=== PATIENT | male | born 1985 | race Two or more races ===

== ENCOUNTER 2018-07-14 22:53 | Emergency (ER) | payer MEDICARE, MEDICAID ==
[~2018-07-14] VITALS: Ht 185.4 cm; Wt 117.8 kg
[2018-07-14 23:09] VITALS: BP 149/101
--- NOTE | 2018-07-15 00:21 | NUR ---
PATIENT STATES THAT HE HEARS VOICES,"LIKE HES OVERHEARING CONVERSATIONS BUT THEY AREN'T TALKING TO HIM". PATIENT DENIES HI/SI, STATES THAT HE WAS ARRESTED AT [employer] FROM [employer]ES [employer]. 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
--- NOTE | 2018-07-15 00:27 | NUR ---
"PATIENT STATES HE WAS JUST HAVING FUN IN HIS FEARS", STATES THAT HE JUST WANTS SOMEWHERE TO STAY FOR THE NIGHT BUT DENIES THOUGHTS OF HARMING HIMSELF OR OTHERS.
[2018-07-18] MEDS ORDERED: NO HOME MEDS (01:17)
== END 2018-07-15 00:58 | disposition left against medical advice (07) ==
LOC: ER 22:54
DX: R41.0 Disorientation, unspecified (principal); F31.9 Bipolar disorder, unspecified; E03.9 Hypothyroidism, unspecified; F12.90 Cannabis use, unspecified, uncomplicated; Z56.0 Unemployment, unspecified; Z88.8 Allergy status to other drugs, medicaments and biological substances
CPT/HCPCS: 99284

== ENCOUNTER 2018-07-29 11:52 | Emergency (ER) | payer MEDICARE, MEDICAID ==
[~2018-07-29 11:52] MED LIST: NO HOME MEDS
--- NOTE | 2018-07-29 12:06 | NUR ---
PT TOLD THE PAWN SHOP KEEPER HE WAS LEAVING SO HE COULD CATCH THE BUS.
== END 2018-07-29 12:18 | disposition left against medical advice (07) ==
LOC: ER 11:53
DX: M79.673 Pain in unspecified foot (principal); Z53.21 Procedure and treatment not carried out due to patient leaving prior to being seen by health care provider

== ENCOUNTER 2018-07-29 15:04 | Emergency (ER) | payer MEDICARE, MEDICAID | END 2018-07-29 17:14 | disposition left against medical advice (07) | LOC: ER 15:05 | DX: Z53.21 Procedure and treatment not carried out due to patient leaving prior to being seen by health care provider (principal) ==

== ENCOUNTER 2018-08-03 16:18 | Inpatient (IN) | payer MEDICARE, MEDICAID ==
[~2018-08-03] VITALS: Ht 185.4 cm; Wt 120.8 kg
[2018-08-03] MEDS ORDERED: magnesium hydroxide 30ml (MOM) UD suspension PO PRN (21:15)
[2018-08-03] MEDS ORDERED: acetaminophen 325mg tablet PO PRN ×2 (21:15)
[2018-08-03] MEDS ORDERED: loperamide 2mg capsule PO PRN (21:15)
[2018-08-03] MEDS ORDERED: mag hydrox/Alum hydrox/simeth 30ml oral suspension PO PRN (21:15)
--- NOTE | 2018-08-03 22:10 | NUR ---
This patient is a direct admit from [facility] at 2014 to room 327-A, on a 5150 for DTS/DTO. The patient is homeless, and was found by law enforcement running into traffic, having paranoid thoughts, and, "I thought the Mafia was after me." The client admits to having homicidal thoughts. He has a long hx of "Schizoaffective," and has served time at [facility] for 2 felonies. The patient admits to smoking Cannabis, and Utox agrees. During admit the patient became restless and agitated with questions. He just quit talking. "I'm sorry, but I just don't want to talk right now." He is oriented to the unit, belongings inventoried by EDMUND Aguilera. No contraband found. He was provided snacks, an admit packet, and is now sleeping.
[2018-08-04 08:00] LABS: CHOL/HDL RATIO 3.9 (0.00-4.99); CHOLESTEROL 148 MG/DL (0-200); HDL CHOLESTEROL 38 MG/DL (35-60); LDL CHOLESTEROL 96 MG/DL (50-100); TRIGLYCERIDES 80 MG/DL (20-135)
[2018-08-04 08:04] LABS: HEMOGLOBIN A1C 5.6 % (4.5-6.2)
--- NOTE | 2018-08-04 08:24 | NUR ---
Pt refused to allow VS to be taken this am, also refused to allow pictures to be taken of multiple blisters bilat feet, intact reabsorbing, pt states he was basically walking for 3 1/2 weeks. Addendum: 08/04/18 at 0826 by Elena Bailey RN (Lee) Amended: Links added.
[2018-08-04] MEDS ORDERED: tuberculin, purif. prot. deriv. 5 units/0.1ml ID ONE (10:00)
[2018-08-04] MEDS ORDERED: LORazepam 1 MG tablet PO PRN (11:05)
[2018-08-04] MEDS: hydrOXYzine 25 MG tablet PO PRN (11:25)
--- NOTE | 2018-08-04 12:18 | NUR ---
Malnutrition consult: Pt admit w/ psychosis. PO 100% regular meals meeting needs w/ no edema, wounds, weakness, or significant wt loss hx. BMI 34. No malnutrition at this time. Addendum: 08/04/18 at [address] Amended: Links added.
[2018-08-04] MEDS ORDERED: OLANZapine 2.5MG tablet PO ONE (12:45)
[2018-08-04] MEDS ORDERED: valproate sod 250mg/5ml UD oral syrup PO ONE ×2 (13:55→14:45)
[2018-08-04] MEDS: ALPRAZolam 0.5mg tablet PO PRN (15:14)
--- NOTE | 2018-08-04 15:24 | NUR ---
Nursing Progress Note: Legal hold: 5150 Client on involuntary status for DTS/DTO Report received from nurse Garrett MCNEILL with use of SBAR. Why are they here: Pt was a direct transfer from [facility], he was found running into traffic by police, he believed the mafia was after him, he was endorsing SI. Pt has a Hx of schizoaffective disorder. He has been off his meds for 1 1/2 years. He also has a history of incarceration and 2 felony charges, as well gang affiliation. He was released from [facility] alf on May of this year, he states he was put in fpc twice within the past 2 weeks. Assessment What has happened this shift: Pt presented as hypomanic, hyperverbal with elevated mood before breakfast,he entered room where nurses were charting and removed his socks. Pt has several blisters bilateral feet in different stages of healing, most are intact and reabsorbing. Pt stated that he walked for basically 3 1/2 weeks, refused to allow this RN to measure or take pictures of blisters. Pt called mom asking her to bring him food from his favorite restaurant, explained that outside food is not allowed here, he then asked her to bring him something else. Overheard pt while on the phone with mom stating " I know you don't love me but I love you, are you going to be nice to me? You're not always nice to me." A staff member from registration came in to ask pt questions, overheard conversation in the hallway. Registration asked if he was , "yes, I'm to [place]." Asked his address, pt stated, "this is my address now." Pt began to escalate and become agitated during registration questions, demanding to see information the hospital had on him. SW asked registration staff to return at another time. Pt refused VS, observed being intrusive with other pt's during breakfast. After breakfast he remained in the community room writing and drawing with pencil and paper. Pt paranoid, delusional, grandiose with flight of ideas. Pt was stating how he scored above the 95th percentile on standardized testing during the 4th grade. Pt stated that he grew up in [place] and was in a gang called [employer], stated he recently got out, pt stated he was just released from incarceration on 06/09/18 and that he had been in fpc twice last week. 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 Pt spoke of time travel, stated that there are people who travel back from 2030, spoke of a place called [facility] and the [employer]. Asked him what the Hadron collider was, pt demanded to know, "you've never heard of the Hadron Collider?!" Asked pt where he had heard of these things, where he had gotten his information from. Pt became irritated when this, stated I was irritating him. This RN apologized stated I would let him get back to his writing and leave him be. Pt then said, "[employer]." Pt stated he knew what meds he was supposed to be on , gave this RN a list of medications. Pt stated that he was depressed and angry, "I'm bipolar you know." Pt stated that he has hurt people in the past but that "I don't want to hurt no one." Pt stated that he was suicidal a couple days ago but wasn't now. Pt is demanding and aggressive at times as well as easily frustrated. Offered pt prn Atarax, pt stated, "I don't know what Atarax is can you explain it to me. Explained it was also called hydroxyzine, "oh hydroxyzine, it's Vistaril isn't it?" Explained that it was similar to Vistaril. Explained that it was an antihistamine that is helpful for anxiety. Pt stated "I don't have no allergies, I don't need that, If I'm anxious, I'll take an Ativan if you have one of those." Medicated with prn Ativan 1 mg at 1126. Pt met with psychiatrist in his office, he was in there for nearly 2 hours, came out with a list of meds that the doctor had prescribed for him. Depakene 500 mg was ordered as a one time dose. Went to give pt his Depakene, he was walking in the [place]ays with his dirty lunch tray asking where to put it. Assisted pt with his lunch tray and went to give him his Depakene, opened one of the 250 mg/5 ml liquid, pt then stated, "wait, I have to eat my cookie first." Pt proceeded to slowly eat his cookie and seemed to expect this RN to stand there in the hallway with my computer waiting for him to eat his cookie. Told pt that I was going into the charting room and when he was ready for his medicine he could come find me. Pt began following this nurse down the hallway, asked, "do you have my Xanax too?" Explained that I was waiting for the order to be verified by the pharmacy and then I would bring it to him as soon as they did so. Pt became argumentative, "It's already been ordered by Dr Massey, go talk to Dr Mosley." Explained again that it was the pharmacy I was waiting on, not the doctor. "How long will it take? Five minutes, an hour?" Explained that it would probably only be a few minutes. Pt then said, I'm not taking that Depakene now, it's open, I don't know what you put in it, go get me another one." Pt then stated to other nurses in the room, "she doesn't like me, she has something against me." Pt walked away, then when I had fresh Depakene and his Xanax ready, pt walked into group. When group was finished, pt came looking for this RN and asked for his medicine. Pt requested 3 different cups to take his Depakene, had to pour the water from one cup into a smaller cup and then take small sips from the plastic med cup chased by sips of water. Pt was happy with getting his Xanax, used some slang phrase this nurse didn't understand, pt clarified, "for real?" while smiling and laughing. Pt inspected the Xanax packaging, took the pills and stated,"this is the kind I let dissolve under my tongue." Explained that no it wasn't and that he needed to swallow the pills. Pt eventually swallowed the pills. Overheard pt speaking with the hospitalist in the Rec room, he was animated with elevated spirits stating he was going to stay here for at least 30 days. Pt approached another RN in the hallway and stated that he may want to move to [place] because with the money he collects from [facility], "that's like bank there, I could live like a 'G'!" Pt's roommate reported that the pt had cussed at him and threatened him, he didn't feel safe and was in fear for his life. Charge nurse met with roommate and roommate was moved to another room. Pt refused PPD. S/I, H/I: Pt denies SI, roommate stated that pt made verbal threats to him A/VH: Pt denies Sleep: Pt slept 6.5 hours per noc shift report ADL's: Independent, pt asked for a shower became demanding and impatient with the charge nurse, behavior escalated and shower was postponed, pt was redirected to his room where he shut the door. PCT reports pt repeatedly shutting his door despite explanation of unit rules. Group attendance: Pt attended groups Were meds taken: yes Any med S/E: None noted or reported Mental Status Exam Appearance: Tall, large young man, wearing hi-top tennis shoes Eye contact: Good Behavior: Paranoid, demanding, easily frustrated, intrusive Speech: Hyperverbal, loud, pressured Mood: elevated though easily frustrated and angered Affect: animated, intimidating at times Thought process: Flight of ideas, delusional Thought Content: Focused on medications he wants and does not want and when he wants them, happy to be here Cognition: A/O X 4 Insight: Fair Judgment: Poor Interventions PRN's used: Ativan 1 mg, Xanax 1 mg Therapeutic interventions: 1:1 assessment, medication administration/education/monitoring, limit setting, redirection, verbal de-escalation, education on unit procedures, reality orientation-ineffective, Q 15 min safety checks. Restraints/seclusion/emergency medication: N/A Justification of Continued Inpatient Treatment: Pt is paranoid, delusional, easily frustrated and angered. He has been off his meds, he continues to be a DTS and DTO. Pt needs stabilization with medications in a safe and therapeutic environment. Pt is homeless and will need discharge planning. Addendum: 08/04/18 at 1746 by Elena Bailey RN (Lee) Pt states he was in [facility]
[2018-08-04] MEDS ORDERED: cephalexin 500mg capsule PO SCH (16:00)
[2018-08-04 20:35] VITALS: BP 149/87
[2018-08-04] MEDS: ziprasidone 20mg capsule PO SCH (22:01)
[2018-08-04] MEDS: cephalexin 500mg capsule PO SCH (22:01)
[2018-08-04] MEDS: OLANZAPINE 5 MG TABLET PO SCH (22:01)
--- NOTE | 2018-08-05 01:47 | NUR ---
Nursing Progress Note Legal hold: 5150 Client on voluntary/involuntary status for GD/DTS Report received from nurse with use of SONIDO Pinon RN Why are they here: The patient was admitted 08/03 from [facility] where he was being held on a 5150 for being a danger to himself and gravely disabled. He was picked up by police after he was running into traffic. When contacted by the police he was making paranoid statements. He has a long hx of mental illness and he has been off medications for the past one and half years. He is homeless. Assessment What has happened this shift:The patient was up on the unit. He is intrusive but has been accepting redirection. He is hyperverbal and circumstantial. He believes he is being constantly monitored and believes he has a chip that was implanted and stated, "My life is not private" When asked if he was hearing voices he stated, "I can hear words without hearing the actual words. I guess I developed MORELIA" He reports his moods are "up and down" He is not able to verbalize a reasonable plan for food, chcf or clothing if he was discharged from the hospital. He stated he wants to stay on this unit at least 30 days. He fluctuated on whether or not he wants to stay in the [place] area. He asked staff to contact security to see if any one had turned in a back pack that he left at the bus stop in front of the hospital. He stated that he has lost all of his personal belongings. 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 Because that's a bitch move" He did accept that the patient made no such comments S/I, H/I: Denies SI and HI A/VH: The patient admits to hearing voices Sleep:[] ADL's: independent Group attendance: No PM group but did watch movie with peers Were meds taken: The patient was medication compliant but wanted to inspect the packaging before taking them Any med S/E none apparent Mental Status Exam Appearance: Dressed appropriately for the unit Eye contact: good Behavior: Intrusive, disorganized, impulsive Speech: fast pressured Mood: Labile Affect: Labile Thought process: Delusional and paranoid. Disorganized Thought Content: paranoid about male peer. Grandiose Cognition: Alert Insight:poor Judgment:Poor Interventions PRN's used:na Therapeutic interventions: One to one with the patient to assess for severity of thought disorder and his ability to verbalize a realistic plan for self care. Provide structure and redirection as needed. Self harm risk assessed Restraints/seclusion/emergency medication: NA Justification of Continued Inpatient Treatment: The patient's mood is unstable and he continues to misinterpret reality. He is unable to verbalize a plan for self care if he were to leave the hospital. He is impulsive and acts out on his delusional thoughts putting at risk to harm himself or others.
[2018-08-05 08:14] VITALS: BP 137/87
[2018-08-05] MEDS: cephalexin 500mg capsule PO SCH ×3 (08:23→22:04)
[2018-08-05] MEDS: valproate sod 250mg/5ml UD oral syrup PO SCH ×2 (08:24→13:27)
--- NOTE | 2018-08-05 17:10 | NUR ---
Nursing Progress Note: Legal hold: 5150 Client on involuntary status for DTS/DTO Report received from nurse Alexia MCNEILL with use of SBAR. Why are they here: Pt was a direct transfer from [facility], he was found running into traffic by police, he believed the mafia was after him, he was endorsing SI. Pt has a Hx of schizoaffective disorder. He has been off his meds for 1 1/2 years. He also has a history of incarceration and 2 felony charges, as well gang affiliation. He was released from [facility] on May of this year, he states he was put in skilled nursing twice within the past 2 weeks. Assessment What has happened this shift: Received Pt sitting on the edge of his bed at change of shift. Calm and relatively cooperative in the litigation claim representative. Ate breakfast in the group room with other clients and stated it was the bomb breakfast. Took AM meds and wanted to see the labels and have medications opened in front of him. Continues to refuse to have PPD test. Mother came to visit in AM. Visit seemed pleasant for a time but became hostile as mom brought up realities of his past behavior. Clients hostile speech toward mom was confronted by RN and client excused himself. Pt signed a SALLY so mom could talk with Dr Carolina. Pt attended and ate meals with others. He attended and participated well in groups. S/I, H/I: Pt denies SI A/VH: Pt denies Sleep: not on this shift ADL's: Independent Group attendance: Pt attended groups Were meds taken: yes Any med S/E: None noted or reported Mental Status Exam Appearance: Tall, large young man, wearing street clothes Eye contact: Good Behavior: Paranoid, demanding, easily frustrated, intrusive Speech: Hyperverbal, loud, pressured Mood: elevated though easily frustrated and angered Affect: animated, intimidating at times Thought process: Flight of ideas, delusional Thought Content: Focused on how long he will stay on [facility] Cognition: A/O X 4 Insight: Poor Judgment: Poor Interventions PRN's used: None Therapeutic interventions: 1:1 assessment, medication administration/education/monitoring, limit setting, redirection, verbal de-escalation, education on unit procedures, reality orientation-ineffective, Q 15 min safety checks. Restraints/seclusion/emergency medication: N/A Justification of Continued Inpatient Treatment: Pt is paranoid, delusional, easily frustrated and angered. He has been off his meds, he continues to be a DTS and DTO. Pt needs stabilization with medications in a safe and therapeutic environment. Pt is homeless and will need discharge planning.
[2018-08-05] MEDS: lactobacillus rhamnosus 10,000 MMU CELLS/CAPSULE PO SCH (20:00)
[2018-08-05 20:23] VITALS: BP 130/80
[2018-08-05] MEDS: OLANZAPINE 5 MG TABLET PO SCH (22:04)
[2018-08-05] MEDS: ziprasidone 20mg capsule PO SCH (22:05)
--- NOTE | 2018-08-05 22:58 | NUR ---
Nursing Progress Note Legal hold: 5150 Client on voluntary/involuntary status for GD/DTS Report received from nurse with use of SBAR by Rolo MCNEILL Why are they here: The patient was admitted 08/03 from [facility] ER where he was being held on a 5150 for being a danger to himself and gravely disabled. He was picked up by police after he was running into traffic. When contacted by the police he was making paranoid statements. He has a long hx of mental illness and he has been off medications for the past one and half years. He is homeless. Assessment: The patient was up on the unit and social with others. Mildly intrusive at times. Presented as calmer and was much less hyperverbal then last evening. He was better to self regulate his replies the assessment question and they were less circumstantial. Improving insight. He exhibits labile mood and was sad that the security staff did not have his back pack which he had hoped would be turned into them after he left it at the bus stop. He has no plans for housing if he discharged from the unit. He has some grandiosity regarding his artistic abilities. S/I, H/I: Denies SI and HI A/VH: The patient denies A/V Sleep:[] ADL's: independent Group attendance: No PM group Were meds taken: The patient was medication compliant except for taking the pro biotic which he felt he did not need. Any med S/E none apparent Mental Status Exam Appearance: Dressed appropriately for the unit Eye contact: good Behavior: Intrusive, disorganized, impulsive Speech: fast pressured but improved from last evening Mood: Labile Affect: Labile Thought process: Delusional and paranoid. Disorganized Thought Content: Grandiose Cognition: Alert Insight:poor Judgment:Poor Interventions PRN's used:na Therapeutic interventions: One to one with the patient to assess for severity of thought disorder and his ability to verbalize a realistic plan for self care. Provide structure and redirection as needed. Self harm risk assessed Restraints/seclusion/emergency medication: NA Justification of Continued Inpatient Treatment: The patient's mood is unstable and he continues to misinterpret reality. He is unable to verbalize a plan for self care if he were to leave the hospital. He is impulsive and acts out on his delusional thoughts putting at risk to harm himself or others
[2018-08-06] MEDS: lactobacillus rhamnosus 10,000 MMU CELLS/CAPSULE PO SCH ×3 (08:00→20:37)
[2018-08-06] MEDS: cephalexin 500mg capsule PO SCH ×3 (08:21→20:37)
[2018-08-06] MEDS: valproate sod 250mg/5ml UD oral syrup PO SCH ×3 (08:21→20:36)
--- NOTE | 2018-08-06 15:08 | NUR ---
Nursing Progress Note Legal hold: 5150 Client on voluntary/involuntary status for GD/DTS Report received from nurse with use of SBAR by Rolo MCNEILL Why are they here: The patient was admitted 08/03 from [facility] where he was being held on a 5150 for being a danger to himself and gravely disabled. He was picked up by police after he was running into traffic. When contacted by the police he was making paranoid statements. He has a long hx of mental illness and he has been off medications for the past one and half years. He is homeless. Assessment: What happened this shift: The patient was asleep at change of shift. He was encouraged to get up for breakfast which he did. He was cooperative, talkative, polite and med compliant at breakfast. he was asked to leave the morning group due to being disruptive. he could not understand that the group was on the topic of boundaries. He wanted and tried to control the group and lead it and became disruptive. This happened right after his mother came to visit and he was apparently triggered by words he had with his mother. he was cussing and swearing in his room and stating he was b=very angry and stated he did not trust or like any person. He was able to talk with this nurse enough to lie down and rest before lunch. He was able to calm self and attended afternoon group without incident. He is suspicious of medications but was able to take all but refused the Culturelle probiotic stating he didn't need it. he dinies suicidal thoughts at this time. His thinking is grandiose and disorganized. Appears to be responding to internal stimuli and states he has a special sense to feel "energy and spirits." S/I, H/I: Denies SI and HI A/VH: As above Sleep: Napped ADL's: independent Group attendance: Yes Were meds taken: The patient was medication compliant except for taking the pro biotic which he felt he did not need. Any med S/E none apparent Mental Status Exam Appearance: Dressed appropriately for the unit Eye contact: fair Behavior: Intrusive, disorganized, impulsive, labile Speech: pressured Mood: Labile Affect: Labile Thought process: Delusional and paranoid. Disorganized Thought Content: Grandiose Cognition: Alert Insight: very poor Judgment:Poor Interventions PRN's used: None Therapeutic interventions: One to one with the patient to assess for severity of thought disorder and his ability to verbalize a realistic plan for self care. Provide structure and redirection as needed. Self harm risk assessed Restraints/seclusion/emergency medication: NA Justification of Continued Inpatient Treatment: The patient's mood is unstable and he continues to misinterpret reality. He is unable to verbalize a plan for self care if he were to leave the hospital. He is impulsive and acts out on his delusional thoughts putting at risk to harm himself or others
[2018-08-06] MEDS: ALPRAZolam 0.5mg tablet PO PRN (19:41)
[2018-08-06 20:00] VITALS: BP 134/80
[2018-08-06] MEDS: OLANZAPINE 5 MG TABLET PO SCH (21:56)
[2018-08-06] MEDS: ziprasidone 20mg capsule PO SCH (21:57)
--- NOTE | 2018-08-06 23:12 | NUR ---
Nursing Progress Note Legal hold: 5250 Client on voluntary/involuntary status for GD/DTS Report received from nurse with use of SBAR by Sahara MCNEILL Why are they here: The patient was admitted 08/03 from [facility] ER where he was being held on a 5150 for being a danger to himself and gravely disabled. He was picked up by police after he was running into traffic. When contacted by the police he was making paranoid statements. He has a long hx of mental illness and he has been off medications for the past one and half years. He is homeless. Assessment: Pt was placed on a 5250 this shift, met with patient and chief underwriter met with pt and explained 5250. Patient verbalized understanding and signed the paperwork. He was also given a copy. He denies suicidal ideation at this time. He also denies any AH/VH. S/I, H/I: Denies SI and HI A/VH: denies Sleep: see sleep assessment notation ADL's: independent Group attendance: third shift lieutenant, no groups Were meds taken: The patient was medication compliant except for taking the pro biotic which he felt he did not need. Any med S/E none reported, none observed Mental Status Exam Appearance: WNL Eye contact: good Behavior:pleasant, talkative Speech:pressured Mood: upbeat Affect: anxious Thought process: PAMELA Thought Content: WNL this shift Cognition: Alert Insight:poor Judgment:Poor Interventions PRN's used:na Therapeutic interventions: One to one with the patient to assess for severity of thought disorder and his ability to verbalize a realistic plan for self care. Provide structure and redirection as needed. Self harm risk assessed. Medication education. Q15 min safety checks. Restraints/seclusion/emergency medication: NA Justification of Continued Inpatient Treatment: The patient's mood is unstable and he continues to misinterpret reality. He is unable to verbalize a plan for self care if he were to leave the hospital. He is impulsive and acts out on his delusional thoughts putting at risk to harm himself or others
[2018-08-07] MEDS: cephalexin 500mg capsule PO SCH ×3 (07:52→20:06)
[2018-08-07] MEDS: valproate sod 250mg/5ml UD oral syrup PO SCH ×3 (07:52→20:07)
[2018-08-07 08:00] VITALS: BP 132/80
[2018-08-07] MEDS: lactobacillus rhamnosus 10,000 MMU CELLS/CAPSULE PO SCH ×3 (08:00→20:06)
--- NOTE | 2018-08-07 15:40 | NUR ---
Nursing Progress Note Legal hold: 5150 Client on voluntary/involuntary status for GD/DTS Report received from nurse with use of SBAR by CHARITO Hercules Why are they here: The patient was admitted 08/03 from [facility] ER where he was being held on a 5150 for being a danger to himself and gravely disabled. He was picked up by police after he was running into traffic. When contacted by the police he was making paranoid statements. He has a long hx of mental illness and he has been off medications for the past one and half years. He is homeless. Assessment: What happened this shift: The patient was asleep at change of shift. He was encouraged to get up for breakfast which he did. He was cooperative, talkative, and med compliant at breakfast. He insists on having his medications early and he insists on opening Depakene packages himself which he is able to do without spilling.He is somewhat grandiose and hyperverbal. Posturing with another male patient and there was tension between them during breakfast. Misinterprets statements by others as being directed towards himself. Napped some briefly throughout day. Attended groups and kept busy. Denies suicidal thoughts. and states he is "less angry" today. Reports "seeing or feeling spirits and extraterrestrials." S/I, H/I: Denies SI and HI A/VH: As above Sleep: Napped ADL's: independent Group attendance: Yes Were meds taken: Yes Any med S/E none apparent Mental Status Exam Appearance: Dressed appropriately for the unit Eye contact: fair Behavior: Intrusive, disorganized, impulsive, labile Speech: pressured Mood: Labile Affect: Labile Thought process: Delusional and paranoid. Disorganized Thought Content: Grandiose Cognition: Alert Insight: very poor Judgment:Poor Interventions PRN's used: None Therapeutic interventions: One to one with the patient to assess for severity of thought disorder and his ability to verbalize a realistic plan for self care. Provide structure and redirection as needed. Self harm risk assessed Restraints/seclusion/emergency medication: NA Justification of Continued Inpatient Treatment: The patient's mood is unstable and he continues to misinterpret reality. He is unable to verbalize a plan for self care if he were to leave the hospital. He is impulsive and acts out on his delusional thoughts putting at risk to harm himself or others
[2018-08-07] MEDS: ALPRAZolam 0.5mg tablet PO PRN (19:21)
[2018-08-07 20:52] VITALS: BP 140/91
[2018-08-07] MEDS: OLANZAPINE 5 MG TABLET PO SCH (21:00)
[2018-08-07] MEDS: ziprasidone 20mg capsule PO SCH (22:00)
--- NOTE | 2018-08-08 04:39 | NUR ---
Nursing Progress Note Legal hold: 5250 Client on voluntary/involuntary status for GD/DTS Report received from nurse with use of SBAR by CHARITO Shoemaker Why are they here: The patient was admitted 08/03 from [facility] ER where he was being held on a 5150 for being a danger to himself and gravely disabled. He was picked up by police after he was running into traffic. When contacted by the police he was making paranoid statements. He has a long hx of mental illness and he has been off medications for the past one and half years. He is homeless. Assessment: What happened this shift: Pt was upbeat at change of shift, talkative and engaging. He approached telegraphic typewriter operator chief multiple times to talk and told stories and asked questions about travel and food. Pt sat in community room and played monopoly and was smiling and laughing with peers. He took his 1999 medications, but when telegraphic typewriter operator chief came to give him his later medications, Geodon and Zyprexa he refused them. Lead Based Paint Technician reminded him that he had talked about taking them earlier and that he took them the night prior with no issues. He acknowledged this but then said " I am not going to take them tonight, maybe tomorrow" and then waved his hand at the telegraphic typewriter operator chief in a dismissive fashion. Lead Based Paint Technician told pt that she would ask him again in awhile. t was sitting in rec room watching TV and telegraphic typewriter operator chief approached him and offered the Zyprexa and Geodon again. He said, "no I am not taking them tonight, you'll see how cool I am off medication." Lead Based Paint Technician stressed the importance of his medications and taking them regularly, but pt waved the telegraphic typewriter operator chief off. t announced to his peers in the rec room and telegraphic typewriter operator chief that "I am not going to sleep until 6 or 7 am or maybe not until tomorrow night." at 0330 pt paced the hallway a few times, and when telegraphic typewriter operator chief tried to approach him he held his hand out as if to say "stay away" and kept walking while shaking his head. 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 Disorganized Thought Content: circumstantial Cognition: Alert Insight: very poor Judgment:Poor Interventions PRN's used: prn xanax Therapeutic interventions: One to one with the patient to assess for severity of thought disorder and his ability to verbalize a realistic plan for self care. Provide structure and redirection as needed. Self harm risk assessed Restraints/seclusion/emergency medication: NA Justification of Continued Inpatient Treatment: The patient's mood is unstable and he continues to misinterpret reality. He is unable to verbalize a plan for self care if he were to leave the hospital. He is impulsive and acts out on his delusional thoughts putting at risk to harm himself or others
[2018-08-08 08:00] VITALS: BP 128/82
[2018-08-08] MEDS: lactobacillus rhamnosus 10,000 MMU CELLS/CAPSULE PO SCH ×2 (08:00→20:00)
[2018-08-08] MEDS: cephalexin 500mg capsule PO SCH ×3 (08:16→20:29)
[2018-08-08] MEDS: valproate sod 250mg/5ml UD oral syrup PO SCH ×3 (08:16→20:30)
[2018-08-08] MEDS: ALPRAZolam 0.5mg tablet PO PRN (11:05)
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
[2018-08-08 20:00] VITALS: BP 134/89
[2018-08-08] MEDS: ziprasidone 20mg capsule PO SCH (22:03)
[2018-08-08] MEDS: OLANZAPINE 5 MG TABLET PO SCH (22:03)
--- NOTE | 2018-08-09 04:59 | NUR ---
Nursing Progress Note Legal hold: 5250 Client on voluntary/involuntary status for GD/DTS Report received from nurse with use of SBAR by Sahara MCNEILL Why are they here: The patient was admitted 08/03 from [facility] ER where he was being held on a 5150 for being a danger to himself and gravely disabled. He was picked up by police after he was running into traffic. When contacted by the police he was making paranoid statements. He has a long hx of mental illness and he has been off medications for the past one and half years. He is homeless. Assessment: Pt was asleep at change of shift and snoring loudly. When he woke around 2029 he was in an upbeat mood and very talkative. He took all of his scheduled medication and requested a snack. He approaches staff and talks about random things, tells stories, and and lingers around the nurses station for awhile. He then paces the halls and states he is "working out" and said he used to do this in alf. Before going to bed he takes his Geodon and Zyprexa in the rec room with another patient who is watching TV. Pt exchanged words with peer, and was posturing towards him. The situation diffused and patient went back to his room. He falls asleep after this. 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 Any med S/E none reported, none observed Mental Status Exam Appearance: WNL Eye contact: good Behavior:pleasant, talkative Speech:pressured Mood: upbeat Affect: anxious Thought process: linear Thought Content: circumstantial Cognition: Alert Insight:poor Judgment:Poor Interventions PRN's used:na Therapeutic interventions: One to one with the patient to assess for severity of thought disorder and his ability to verbalize a realistic plan for self care. Provide structure and redirection as needed. Self harm risk assessed. Medication education. Q15 min safety checks. Restraints/seclusion/emergency medication: NA Justification of Continued Inpatient Treatment: The patient's mood is unstable and he continues to misinterpret reality. He is unable to verbalize a plan for self care if he were to leave the hospital. He is impulsive and acts out on his delusional thoughts putting at risk to harm himself or others
[2018-08-09 08:00] VITALS: BP 132/82
[2018-08-09] MEDS: lactobacillus rhamnosus 10,000 MMU CELLS/CAPSULE PO SCH ×2 (08:00→20:00)
[2018-08-09] MEDS: cephalexin 500mg capsule PO SCH ×3 (08:37→20:42)
[2018-08-09] MEDS: valproate sod 250mg/5ml UD oral syrup PO SCH ×3 (08:37→20:42)
--- NOTE | 2018-08-09 16:43 | NUR ---
Nursing Progress Note Legal hold: 5250 Client on voluntary/involuntary status for GD/DTS Report received from nurse with use of SBAR by CHARITO Hercules Why are they here: The patient was admitted 08/03 from [facility] ER where he was being held on a 5150 for being a danger to himself and gravely disabled. He was picked up by police after he was running into traffic. When contacted by the police he was making paranoid statements. He has a long hx of mental illness and he has been off medications for the past one and half years. He is homeless. Assessment: What happened this shift: Received Pt in day room calmly sitting and listening to music. Pt calm and pleasant during breakfast and able to interact minimally yet appropriately with other clients. During morning meds, he refused the culturelle and wanted to open the Depokene himself. He remains paranoid about tampering with medications. He napped X1hr in the AM. Attended AM group and was verbally threatening to another client. He left the group calmly and spoke with his nurse. Continues to tangential in conversation and self absorbed. Spoke with mother on phone which temporarily made him louder and slightly angry, but calmed quickly. When not given what he is asking for immediately, he states that staff does not care. Less labile today and more redirectable. S/I, H/I: Denies SI and HI A/VH: As above Sleep: Napped in morning ADL's: Independent Group attendance: none today Were meds taken: Yes Any med S/E: None Mental Status Exam Appearance: Dressed appropriately for the unit Eye contact: good Behavior: Labile Speech: Tangential Mood: Labile Affect: Labile Thought process: Self absorbed Thought Content: reflective Cognition: Alert Insight: poor Judgment:Poor Interventions PRN's used: None Therapeutic interventions: One to one with the patient to assess for severity of thought disorder and his ability to verbalize a realistic plan for self care. Provide structure and redirection as needed. Self harm risk assessed Restraints/seclusion/emergency medication: NA Justification of Continued Inpatient Treatment: The patient's mood is unstable and he continues to misinterpret reality. He is unable to verbalize a plan for self care if he were to leave the hospital. He is impulsive and acts out on his delusional thoughts putting at risk to harm himself or others
[2018-08-09] MEDS: OLANZAPINE 5 MG TABLET PO SCH (21:00)
[2018-08-09] MEDS: ziprasidone 20mg capsule PO SCH (22:00)
[2018-08-09] MEDS: ALPRAZolam 0.5mg tablet PO PRN (23:36)
--- NOTE | 2018-08-10 01:38 | NUR ---
Nursing Progress Note Legal hold: 5250 Client on voluntary/involuntary status for GD/DTS Report received from nurse with use of SBAR by CHARITO Justin Why are they here: The patient was admitted 08/03 from [facility] ER where he was being held on a 5150 for being a danger to himself and gravely disabled. He was picked up by police after he was running into traffic. When contacted by the police he was making paranoid statements. He has a long hx of mental illness and he has been off medications for the past one and half years. He is homeless. Assessment: What happened this shift: Pt was standing in his room at change of shift and looking at his shelf with belongings on it. He told justowriter operator, "I had more drawings and papers than this yesterday, someone took some, I don't know why they would do that." "I think staff is taking them from me to test me, see if I get angry." Belting Cutter assured pt staff would never try to "test him" or take his drawings. Pt said, "yea well you say that but I know differently." Belting Cutter was looking at his shelf where he had been pointing to his papers and he addressed justowriter operator by saying, "look at me when I am talking to you." Belting Cutter then left the room. Pt had a visit with his mother and step father jolanta which he said "went okay." While they were here he was observed in the hallway as his parents were about to leave the unit telling his mother what things to bring him and the times he wanted her to bring them. He took his 2000 medications, but when it came time to take his 2100 medications geodon and zyprexa he said, "not right now, maybe in 20 minutes, maybe between 11 and 12, I will let you know." Pt came up and requested a form to write down people who are allowed to visit him. He wrote down 10 names and gave it to staff. Staff thanked him and he said, "read off the names to me." staff assured him his writing was legible and that the names did not need to be read aloud. The patient was upset over this and was posturing aggressively at times. Staff asked if he was ready to take the rest of his HS medications and he said," No I won't take those right now, maybe later but I will take a xanax. Pt was given xanax and asked to please rest in his room as it was 2345. 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 Mood: Labile Affect: Labile Thought process: Delusional and paranoid. Disorganized Thought Content: circumstantial Cognition: Alert Insight: very poor Judgment:Poor Interventions PRN's used: prn xanax Therapeutic interventions: One to one with the patient to assess for severity of thought disorder and his ability to verbalize a realistic plan for self care. Provide structure and redirection as needed. Self harm risk assessed Restraints/seclusion/emergency medication: NA Justification of Continued Inpatient Treatment: The patient's mood is unstable and he continues to misinterpret reality. He is unable to verbalize a plan for self care if he were to leave the hospital. He is impulsive and acts out on his delusional thoughts putting at risk to harm himself or others
[2018-08-10 07:30] VITALS: BP 140/78
[2018-08-10] MEDS: lactobacillus rhamnosus 10,000 MMU CELLS/CAPSULE PO SCH ×3 (08:00→20:00)
[2018-08-10] MEDS: valproate sod 250mg/5ml UD oral syrup PO SCH ×4 (08:00→20:34)
[2018-08-10] MEDS: cephalexin 500mg capsule PO SCH ×4 (08:00→20:36)
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
[2018-08-10] MEDS: ALPRAZolam 0.5mg tablet PO PRN (15:01)
--- NOTE | 2018-08-10 15:45 | NUR ---
Initial: Pt admit w/ schizoaffective disorder hx not taking meds not back on schedule. Hx substance abuse, homeless, paranoid, and delusions per MD note. Pt PO 100% regular diet meeting needs. PO decreased to 0% breakfast and lunch today; will monitor for ONS needs if trend continues. [facility] 08/10. Rec: 1. continue regular diet 2. routine bowel care 3. wt per rx Addendum: 08/10/18 at [address] Amended: Links added.
--- NOTE | 2018-08-10 17:45 | NUR ---
Nursing Progress Note Legal hold: 5250 Client on voluntary/involuntary status for GD/DTS Report received from nurse with use of SBAR by CHARITO Justin Why are they here: The patient was admitted 08/03 from [facility] ER where he was being held on a 5150 for being a danger to himself and gravely disabled. He was picked up by police after he was running into traffic. When contacted by the police he was making paranoid statements. He has a long hx of mental illness and he has been off medications for the past one and half years. He is homeless. Assessment: What happened this shift: Pt. sleeping at start of shift. RN woke pt. up for medications pt. initially refused all medications, stating, "I'm good, I just next my Xanax sometimes, I'm actually good to go home". Pt. is agitated, requesting information about filing a complain, RN informed pt. that he could talk wtih a pt. advocate, pt. doesn't appear to be able to process what RN is telling him. Pt. states, "I feel like certain people on rn night have something against me". Pt. refused his breakfast. Pt. demanding the phone, RN informed him that someone else was using it, pt. states, "well I'm going to find out who's using it". Pt. is very difficult to redirect, pt. perseverates over his court appointment today. Pt. did take morning medications @ 11:20am. Pt. states that he has been reading his Bible and that he wants to be a better person. He knows that sometimes he is not so kind to people and is trying to change. Pt. is happy about the books that his mother brought him. Pt. reports that he wants to take his medications and feels that he is getting help here. Pt. was reluctant to show this RN his feet wounds, but eventually did. Wound is clean, dry, and intact. Pt. reports he did not want to go to groups today because he felt like working through things on his own. Pt. found in room writing letter to his grandfather and writing out life story for his hearing today. Pt. states, "I realize that I need help. Yesterday I wanted to kill myself". Pt. requested Xanax before his hearing because he was feeling anxoius. S/I, H/I: Denies SI and HI A/VH: denies Sleep: see sleep assessment notation ADL's: independent Group attendance: No, pt. states he needs alone time. Were meds taken: Pt. took medications. Any med S/E none reported or observed Mental Status Exam Appearance: Dressed appropriately for the unit Eye contact: direct Behavior: Labile. Pt. initially intrusive and abrassive. Speech: direct, threatening tone at times. Mood: Labile Affect: Labile Thought process: Delusional and paranoid. Disorganized Thought Content: circumstantial Cognition: Alert Insight: very poor Judgment:Poor Interventions PRN's used: prn xanax Therapeutic interventions: One to one with the patient to assess for severity of thought disorder and his ability to verbalize a realistic plan for self care. Provide structure and redirection as needed. Self harm risk assessed Restraints/seclusion/emergency medication: NA Justification of Continued Inpatient Treatment: The patient's mood is unstable and he continues to misinterpret reality. He is unable to verbalize a plan for self care if he were to leave the hospital. He is impulsive and acts out on his delusional thoughts putting at risk to harm himself or others
[2018-08-10 19:00] VITALS: BP 128/87
[2018-08-10] MEDS: ziprasidone 20mg capsule PO SCH (23:27)
[2018-08-10] MEDS: OLANZAPINE 5 MG TABLET PO SCH (23:27)
--- NOTE | 2018-08-11 01:08 | NUR ---
Nursing Progress Note Legal hold: 5250 Client on voluntary/involuntary status for GD/DTS Report received from nurse with use of SBAR by Sahara MCNEILL Why are they here: The patient was admitted 08/03 from [facility] ER where he was being held on a 5150 for being a danger to himself and gravely disabled. He was picked up by police after he was running into traffic. When contacted by the police he was making paranoid statements. He has a long hx of mental illness and he has been off medications for the past one and half years. He is homeless. Assessment: Pt was in a good mood this shift, and engaged in conversation with staff. He told stories about his childhood and talked about movies. He was medication compliant with all scheduled medications tonight. He apologized for "the way I acted yesterday." He denies suicidal ideation at this time. He also denies any AH/VH. 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 Provide structure and redirection as needed. Self harm risk assessed. Medication education. Q15 min safety checks. Restraints/seclusion/emergency medication: NA Justification of Continued Inpatient Treatment: The patient's mood is unstable and he continues to misinterpret reality. He is unable to verbalize a plan for self care if he were to leave the hospital. He is impulsive and acts out on his delusional thoughts putting at risk to harm himself or others
[2018-08-11] MEDS: valproate sod 250mg/5ml UD oral syrup PO SCH ×3 (08:02→21:00)
[2018-08-11] MEDS: cephalexin 500mg capsule PO SCH (08:03)
[2018-08-11] MEDS: lactobacillus rhamnosus 10,000 MMU CELLS/CAPSULE PO SCH ×2 (08:03→20:00)
--- NOTE | 2018-08-11 16:26 | NUR ---
Nursing Progress Note Legal hold: 5250 Client on voluntary/involuntary status for GD/DTS Report received from nurse with use of SBAR by Sylvie Rubio RN Why are they here: The patient was admitted 08/[address] [facility] ER where he was being held on a 5150 for being a danger to himself and gravely disabled. He was picked up by police after he was running into traffic. When contacted by the police he was making paranoid statements. He has a long hx of mental illness and he has been off medications for the past one and half years. He is homeless. Assessment: What happened this shift: Pt was sleeping at change of shift and up for breakfast. Patient took his medication from RN this morning and patient advised RN that he did not want to talk to her about anything. Patient wasn't angry, just blunt. Later in the afternoon patient was pleasant and took his medication. RN spoke to patient in the afternoon and patient was happy, talkative and very disorganized. Patient denies suicidal/homicidal ideation. Patient states he is sometimes paranoid. Patient denies hearing voices. RN asked patient if he has been diagnosed with depression or bipolar d/o. It took patient about 5 minutes to eventually tell me he has been diagnosed with Bipolar and ADHD. He kept having to ask RN what the original question was. Patient got upset at RN for 30 seconds over nothing and RN explained that she has enjoyed speaking to him, he apologized right away. Patient had a little disagreement in the hallway when the tech found a small string attached to a paper cross. It was agreed to cut the string off and patient could keep the cross. Patient stood down and agreed and patient fist bumped the tech. S/I, H/I: Denies SI and HI A/VH: denies Sleep: 4.25 ADL's: independent Group attendance: No, pt. states he needs alone time. Were meds taken: Pt. took medications. Any med S/E none reported or observed Mental Status Exam Appearance: Dressed appropriately for the unit Eye contact: direct Behavior: Labile. Pt. initially intrusive and abrassive. Speech: direct, threatening tone at times. Mood: happy and Labile Affect: Labile Thought process: Delusional and paranoid. Disorganized Thought Content: circumstantial Cognition: Alert Insight: poor Judgment:Poor Interventions PRN's used: none Therapeutic interventions: One to one with the patient to assess for severity of thought disorder and his ability to verbalize a realistic plan for self care. Provide structure and redirection as needed. Self harm risk assessed Restraints/seclusion/emergency medication: NA Justification of Continued Inpatient Treatment: The patient's mood is unstable and he continues to misinterpret reality. He is unable to verbalize a plan for self care if he were to leave the hospital. He is impulsive and acts out on his delusional thoughts putting at risk to harm himself or others
[2018-08-11 19:55] VITALS: BP 134/93
[2018-08-11] MEDS: OLANZAPINE 5 MG TABLET PO SCH (21:00)
[2018-08-11] MEDS: ziprasidone 20mg capsule PO SCH (22:00)
[2018-08-12] MEDS: ALPRAZolam 0.5mg tablet PO PRN ×2 (00:50→16:07)
--- NOTE | 2018-08-12 04:37 | NUR ---
Nursing Progress Note Legal hold: 5250 Client on voluntary/involuntary status for GD/DTS Report received from nurse with use of SBAR by CHARITO Shoemaker Why are they here: The patient was admitted 08/03 from [facility] ER where he was being held on a 5150 for being a danger to himself and gravely disabled. He was picked up by police after he was running into traffic. When contacted by the police he was making paranoid statements. He has a long hx of mental illness and he has been off medications for the past one and half years. He is homeless. Assessment: What happened this shift: Pt was sitting in community room on change of shift and told brief writer that day shift took the string he had out around his neck that had a paper cross on it.He told brief writer that "they must have a problem with Latter-[employer]." Can Tester assured pt that the only reason the string from around his neck was taken was because it was a safety hazard. Pt then said, "Oh by the way I am not going to be taking my Zyprexa and Geodon tonight, I really just need to smoke weed, I don't really need pills." "You will see how nice I am when I don't take my pills." Can Tester tried to stress to pt the importance of taking medication on a consistent basis, but pt cut brief writer off and said, "pills can't help everything, right? " then put headphones on and ignored brief writer. He refused all medication, including his Depakene. Later, pt was found tearing at the edges of washcloths, staff took the washcloths to prevent pt from making more string. Shortly after this, pt came to the nursing station sporting the paper cross on a string again. Can Tester explained to patient again why he is not allowed string, and requested that he give the hand made string to staff. He complied, but said to brief writer, "you are attacking me because of my Latter-Day!" Can Tester tried reminding him of the safety issues associated with the string, but again he accused brief writer of being against his episcopalian. Around 99 pt came up and requested his Depakene along with xanax. Can Tester gave him the xanax, but explained that Depakene was scheduled for 1999, and it was now 0100. Patient again accused brief writer of being against his episcopalian. Around 0400 pt approached brief writer and apologized, and went on to talk about all of his accomplishments, how he was in gfted programs at school, and how he wants to be in the and an air fighting jet pilot. 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 Mood: Labile, accusatory Affect: Labile Thought process: Delusional and paranoid. Disorganized Thought Content: circumstantial Cognition: Alert Insight: very poor Judgment:Poor Interventions PRN's used: prn xanax Therapeutic interventions: One to one with the patient to assess for severity of thought disorder and his ability to verbalize a realistic plan for self care. Provide structure and redirection as needed. Self harm risk assessed Restraints/seclusion/emergency medication: NA Justification of Continued Inpatient Treatment: The patient's mood is unstable and he continues to misinterpret reality. He is unable to verbalize a plan for self care if he were to leave the hospital. He is impulsive and acts out on his delusional thoughts putting at risk to harm himself or others
[2018-08-12] MEDS: valproate sod 250mg/5ml UD oral syrup PO SCH ×3 (07:21→20:28)
[2018-08-12] MEDS: lactobacillus rhamnosus 10,000 MMU CELLS/CAPSULE PO SCH ×2 (07:22→20:28)
[2018-08-12 07:46] VITALS: BP 138/86
--- NOTE | 2018-08-12 17:00 | NUR ---
Nursing Progress Note Legal hold: 5250 Client on voluntary/involuntary status for GD/DTS Report received from nurse with use of SBAR by CHARITO Swain Why are they here: The patient was admitted 08/03 from [facility] ER where he was being held on a 5150 for being a danger to himself and gravely disabled. He was picked up by police after he was running into traffic. When contacted by the police he was making paranoid statements. He has a long hx of mental illness and he has been off medications for the past one and half years. He is homeless. Assessment: What happened this shift: Pt. is awake at beginning of shift. Pt. Hyper verbal and tangential in his conservation, explaining why he needs more help managing behaviors over medication then changing the subject to his cat, and then fci, etc. Pt. overheard encouraging other patients. Pt. took AM medications. Pt. Requested Xanax this afternoon for anxiety. Pt. Refused assessment of feet. Pt. Reports feeling persecuted for his zamzam and for his race. Pt. Refused assessment of his feet. Pt. Became agitated with another pt. pacing and shouting today, initially feeling like the pt. Was yelling at him, after calming down pt. was able to express his feelings appropriately to the pt. And tell him to stop shouting. Pt. apologized to his mother on the phone for the pain hes caused her. S/I, H/I: Denies SI and HI A/VH: denies Sleep: pt. Reportedly did not sleep last night. Pt. Napped 2 hours on this shift. ADL's: independent Group attendance: No Were meds taken: pt refused meds Any med S/E none reported or observed Mental Status Exam Appearance: Dressed appropriately for the unit Eye contact: direct Behavior: pt. Was intrusive and defensive sometimes, but mostly pleasant and cooperative this shift. Speech: direct Mood: Labile, accusatory Affect: Labile Thought process: Delusional and paranoid. Disorganized Thought Content: circumstantial Cognition: Alert Insight: Poor Judgment:Poor Interventions PRN's used: prn xanax Therapeutic interventions: One to one with the patient to assess for severity of thought disorder and his ability to verbalize a realistic plan for self care. Provide structure and redirection as needed. Self harm risk assessed Restraints/seclusion/emergency medication: NA Justification of Continued Inpatient Treatment: The patient's mood is unstable and he continues to misinterpret reality. He is unable to verbalize a plan for self care if he were to leave the hospital. He is impulsive and acts out on his delusional thoughts putting at risk to harm himself or others
[2018-08-12 19:48] VITALS: BP 130/81
[2018-08-12] MEDS: OLANZAPINE 5 MG TABLET PO SCH (20:29)
[2018-08-12] MEDS: ziprasidone 20mg capsule PO SCH (21:31)
--- NOTE | 2018-08-12 23:06 | NUR ---
Nursing Progress Note Legal hold: 5250 Client on voluntary/involuntary status for GD/DTS Report received from nurse with use of SBAR by CHARITO Shoemaker Why are they here: The patient was admitted 08/03 from [facility] ER where he was being held on a 5150 for being a danger to himself and gravely disabled. He was picked up by police after he was running into traffic. When contacted by the police he was making paranoid statements. He has a long hx of mental illness and he has been off medications for the past one and half years. He is homeless. Assessment: What happened this shift: Pt sleeping at change of shift. During 1:1 assessment pt was fatigued but cooperative. RN able to assess blisters; healing well. RN noticed torn washcloths were being used at [facility] -- RN explained the need to remove and dispose of them, as well as a broken piece of toothbrush the RN found in room. Pt was agreeable and confirmed understanding that those items are safety hazards. Pt took a shower, and attended snack. Pt was compliant with medications, but suggested "I don't need them. Or sleep. 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 I am good with a 3 hr nap." RN explained the importance of consistently taking medications and the importance of sleep hygiene. 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 Slight elevation provided slight decrease in snoring. 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 Provide structure and redirection as needed, safety hazards removed, Self harm risk assessed , Q15 checks Restraints/seclusion/emergency medication: N/A Justification of Continued Inpatient Treatment: The patient's mood is unstable and he continues to misinterpret reality. He is unable to verbalize a plan for self care if he were to leave the hospital. He is impulsive and acts out on his delusional thoughts putting at risk to harm himself or others. Noted improvement in confrontational attitude this evening.
[2018-08-13 07:30] VITALS: BP 122/89
[2018-08-13] MEDS: lactobacillus rhamnosus 10,000 MMU CELLS/CAPSULE PO SCH ×2 (08:03→22:02)
[2018-08-13] MEDS: valproate sod 250mg/5ml UD oral syrup PO SCH ×3 (08:03→22:05)
[2018-08-13] MEDS: ALPRAZolam 0.5mg tablet PO PRN (13:40)
[2018-08-13] MEDS: hydrOXYzine 25 MG tablet PO PRN (14:49)
[2018-08-13] MEDS ORDERED: olanzapine 10mg tablet PO ONE (15:15)
[2018-08-13] MEDS ORDERED: ziprasidone 20mg capsule PO ONE (15:15)
[2018-08-13] MEDS ORDERED: olanzapine 10mg tablet PO PRN (15:25)
[2018-08-13] MEDS: ibuprofen tablet 400 MG TABLET PO SCH (15:45)
--- NOTE | 2018-08-13 17:45 | NUR ---
Nursing Progress Note Legal hold: 5250 Client on voluntary/involuntary status for GD/DTS Report received from nurse with use of SBAR by CHARITO Swain Why are they here: The patient was admitted 08/03 from [facility] ER where he was being held on a 5150 for being a danger to himself and gravely disabled. He was picked up by police after he was running into traffic. When contacted by the police he was making paranoid statements. He has a long hx of mental illness and he has been off medications for the past one and half years. He is homeless. Assessment: What happened this shift: Pt. sleeping at beginning of shift. pt. slept 8 hours. Pt. became agitated after another pt. was crying hysterically. RN offerred pt. PRN Xanax and pt. refused. RN gave therapeutic communication to help pt. calm down. Pt. reports he wishes he could smoke marijauana again because he used it all the time in his past to help him relax. RN discussed with pt. about better coping skills. Pt. went back to his room to relax. Pt. allowed 1:1 assessment but refused assessment of his feet. Pt. became increasingly agitated around noon, blocking the door to his room, becoming defensive when asked to keep door entrance free. Pt. is paranoid, possibly hearing voices, saying, "what did you say about my mother?" when RN did not ask such a question. Pt. is delusional and states, "there are cameras out there watching me". Pt. offerred Xanax but refused, saying, "I just want to stay in my room right now, is that OK?" in a defensive tone of voice? Dr. Roper ordered now dose of Zyprexa 5mg and Geodone 40mg po with good effect. Pt. confessed to RN that he had written in penicl on his bathroom wall. Pt. showed this RN the writing that said, "God bless the [place]" and "KYLEC the true rapper" and "Ashish is lisa". Pt. was apologetic and washed it off the wall. Pt. became isolative this afternoon, wanting to eat his lunch and dinner in his room. S/I, H/I: Denies A/VH: Denies Sleep: 8 hours ADL's: Independent. Showered this afternoon. Group attendance: N Were meds taken: Y Any med S/E: None reported, None observed Mental Status Exam Appearance: Freshly showered, green unit scrubs, nonskid socks, and personal tennis shoes Eye contact: Direct Behavior: Fearful, paranoid, Fatigued Speech: Hyperverbal thia AM, but became less verbal this afternoon. Mood: fearful. Affect: Congruent to mood Thought process: Delusional, states there are cameras outside watching him. Thought Content: POC while at [facility], How he doesn't really need meds or sleep Cognition: A&Ox4 Insight: Poor Judgment:Poor Interventions PRN's used: Xanax, Geodon, Zyprexa, Motrin Therapeutic interventions: One to one with the patient to assess for severity of thought disorder and his ability to verbalize a realistic plan for self care. Provide structure and redirection as needed, safety hazards removed, Self harm risk assessed , Q15 checks Restraints/seclusion/emergency medication: N/A Justification of Continued Inpatient Treatment: The patient's mood is unstable and he continues to misinterpret reality. Pt. is paranoid and fearful, feeling like camerras are watching him. He is unable to verbalize a plan for self care if he were to leave the hospital. He is impulsive and acts out on his delusional thoughts putting at risk to harm himself or others.
[2018-08-13 20:00] VITALS: BP 144/92
--- NOTE | 2018-08-13 20:16 | NUR ---
Pt refused assessment.
[2018-08-13] MEDS ORDERED: hydrOXYzine 25 MG tablet PO SCH (21:00)
[2018-08-13] MEDS: OLANZAPINE 5 MG TABLET PO SCH (21:00)
[2018-08-13] MEDS: ziprasidone 20mg capsule PO SCH (22:05)
--- NOTE | 2018-08-14 00:06 | NUR ---
Nursing Progress Note Legal hold: 5250 Client on voluntary/involuntary status for GD/DTS Report received from nurse with use of SBAR: CHARITO Simon Why are they here: The patient was admitted 08/03 from [facility] ER where he was being held on a 5150 for being a danger to himself and gravely disabled. He was picked up by police after he was running into traffic. When contacted by the police he was making paranoid statements. He has a long hx of mental illness and he has been off medications for the past one and half years. He is homeless. Assessment What happened this shift: Pt. sleeping at beginning of shift. Upon RN introducing self, Pt became agitated and confrontational stating "You need to quit checking on me. You're not my nurse. I know you were talking about me and it needs to fucking stop. Don't bother me, I'll take my meds at ten. Now stay the fuck away, I'm just going to be in my room, is that okay? Good. Just go away." RN offered pt. JENNIFER Love and pt. declined. Pt refused 1:1 assessment. Pt. became increasingly agitated, pacing the halls then went to the TV room and requested to watch [employer]. During this time, pt spoke to childhood memories, made delusional statements ("I'm am alien but [place] is okay. So I don't mind being here."), and would call out to peers inciting conflict by stating "Don't talk shit about me. I could take you out. I hear what you are saying." Charge nurse redirected pt behavior and refocused on TV. customer support analyst and fellow staff midwife/apprenticeship director interacted with pt to talk with an provide some reality orientation and boundaries relating to pt behavior. Pt still not wanting to interact with primary RN as he believes her to be talking about him. Pt called mother multiple times, making aggressive and argumentative statements regarding his childhood and how "you chose your over me mom. I know. Why is it so hard to reach you?" Between phone conversations with mother, watching TV and being given a snack, pt's mood became slightly less irritable. He took medications that were administered by the customer support analyst. An hour later, pt agitation had decreased significantly, and he became agreeable. He apologized to primary RN and asked the assembly instructions writer to tell his mother sorry, too. He remained delusional, paranoid, hyperverbal and tangential; ("I know people are talking about me, but that's just how it goes. I'm good, I guess this is better than snf. Do you think I should smile? Guess I can't, yeah know?") but was cooperative and agreed try to sleep. Pt had shredded washcloth that was removed from room. S/I, H/I: Refused assessment A/VH: Refused assessment but pt seems to to responding to ; he frequently states he hears people talking about him Sleep: See Sleep Hour Charting; Turned in to sleep at 2345. ADL's: Independent Group attendance: Y - HS Snack Were meds taken: Y Any med S/E: None Reported, None Observed Mental Status Exam Appearance: Freshly showered, green unit scrubs, nonskid socks, and personal tennis shoes Eye contact: Direct Behavior: Confrontational, Intimidating, Defensive Speech: Hyperverbal, Tangential, Intermittently Rapid Mood: Labile Affect: Congruent to mood Thought process: Delusional, Paranoid Thought Content: POC while at [facility], How he doesn't really need meds or sleep, How people are talking negatively about him Cognition: A&Ox4 Insight: Poor Judgment: Poor Interventions PRN's used: None (Offered but pt declined) Therapeutic interventions: One to one with the patient to assess for severity of thought disorder and his ability to verbalize a realistic plan for self care. Provide structure and redirection as needed, safety hazards removed, Self harm risk assessed , Q15 checks Restraints/seclusion/emergency medication: N/A Justification of Continued Inpatient Treatment: The patient's mood is unstable and he continues to misinterpret reality. Pt. is paranoid, delusional, labile and unable to verbalize a plan for self care if he were to leave the hospital. He is impulsive, confrontational and acts out interpersonally on his delusional thoughts putting at risk to harm himself or others.
[2018-08-14] MEDS: ibuprofen tablet 400 MG TABLET PO SCH ×3 (08:08→16:56)
[2018-08-14] MEDS: lactobacillus rhamnosus 10,000 MMU CELLS/CAPSULE PO SCH ×2 (08:08→20:27)
[2018-08-14] MEDS: ziprasidone 20mg capsule PO SCH ×2 (08:09→22:05)
[2018-08-14] MEDS: olanzapine 10mg tablet PO SCH (08:09)
[2018-08-14] MEDS: valproate sod 250mg/5ml UD oral syrup PO SCH ×3 (08:10→20:22)
--- NOTE | 2018-08-14 09:29 | NUR ---
Pt refused VS and physical assessment. Addendum: 08/14/18 at 0967 by Elena Bailey RN (Lee) Amended: Links added.
[2018-08-14] MEDS: ALPRAZolam 0.5mg tablet PO PRN (12:52)
--- NOTE | 2018-08-14 16:21 | NUR ---
Nursing Progress Note Legal hold: 5250 Client on voluntary/involuntary status for GD/DTS Report received from nurse with use of SBAR: CHARITO Vernon Why are they here: The patient was admitted 08/03 from [facility] ER where he was being held on a 5150 for being a danger to himself and gravely disabled. He was picked up by police after he was running into traffic. When contacted by the police he was making paranoid statements. He has a long hx of mental illness and he has been off medications for the past one and half years. He is homeless. Assessment What happened this shift: Pt largely avoidant of this RN before breakfast then when went to give meds after he ate his tray, reluctantly agreed to take them stating, "you forgot to come remind me before breakfast." When asked pt "How are you?" Pt stated, "Don't ask me any questions, I'm in a bad mood. Can you tell the other nurses not to ask me questions everyday? Every time you ask me 'how are you,' I'm just going to keep asking you, 'how are you?'" Pt observed carrying his plastic hygiene bin around with him full of books and other things. Per nurses' notes, pt has been tearing up washclothes and towels and making strings, also a broken toothbrush was found in his room on the evening of 08/12/18. Notified charge nurse of pt carrying hygiene bin around with him everywhere. Discussed situation with the charge nurse and director. Pt was sitting in the community room, charge nurse, this RN and PCT asked pt to return to room so we could talk to him. Pt reluctant to return to room, wanted to know why. Discussed how hygiene bin could not be carried around with him all day. 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 Pt then returned to room and emptied pockets and hygiene bucket per request. Pt had toothbrush that the end had been broken off of forming jagged edges in his bin, also had strips of torn up washcloth in his pocket. Pt stated the reason why the toothbrush was broken off like that was because he was trying to make shoelaces for his shoes. Offered pt zip ties for shoes, pt declined. Reinforced unit rules with pt that he cannot continue to tear up washcloths or break up pencils or toothbrushes to make sharp edges. Pt was cooperative with going through hygiene bin, expressed understanding of unit rules. PCT searched room afterwards and found more pencils and another broken, jagged edged toothbrush which had been stuffed up/hidden in the paper towel porter in pt's room. Pt became agitated during phone call with mom while sitting in community room around 1245. He became paranoid, loudly stating that staff wants to kill him and if they want him , they should just slip him a gun and let him shoot himself in the head. Reassured pt that he was safe here, that staff was here to help and no one here wished him . Pt heard another pt laugh about something unrelated to him and remarked that she was laughing at him and there are so many people who like to laugh at other people's troubles. Reality orientation provided that pt was not laughing at him, reinforced that staff here wish to help him, and most people do not find cliff in other's suffering. medicated with prn Xanax 1 mg at 1252 with good effect. Pt expressed his wish to watch a movie today either "Bill and Ceasar's Excellent Adventure" or "Stu Juarez, [facility] S/I, H/I: Pt refused to answer assessment questions tofitz A/VH: Refused assessment but pt seems to to responding to AH; he frequently states he hears people talking about him Sleep: See Sleep Hour Charting; Turned in to sleep at 2345. ADL's: Independent Group attendance: Y - HS Snack Were meds taken: Y Any med S/E: None Reported, None Observed Mental Status Exam Appearance: Freshly showered, green unit scrubs, nonskid socks, and personal tennis shoes Eye contact: Direct Behavior: Confrontational, Intimidating, Defensive Speech: Hyperverbal, Tangential, Intermittently Rapid Mood: Labile Affect: Congruent to mood Thought process: Delusional, Paranoid Thought Content: POC while at [facility] [place], How he doesn't really need meds or sleep, How people are talking negatively about him Cognition: A&Ox4 Insight: Poor Judgment: Poor Interventions PRN's used: None (Offered but pt declined) Therapeutic interventions: One to one with the patient to assess for severity of thought disorder and his ability to verbalize a realistic plan for self care. Provide structure and redirection as needed, safety hazards removed, Self harm risk assessed , Q15 checks Restraints/seclusion/emergency medication: N/A Justification of Continued Inpatient Treatment: The patient's mood is unstable and he continues to misinterpret reality. Pt. is paranoid, delusional, labile and unable to verbalize a plan for self care if he were to leave the hospital. He is impulsive, confrontational and acts out interpersonally on his delusional thoughts putting at risk to harm himself or others. Addendum: 08/14/18 at 1643 by Elena Bailey RN (Lee) SEE NEXT NURSING NOTE, ACCIDENTLY HIT "ENTER" BUTTON AND NOTE WAS SAVED BEFORE COMPLETION
--- NOTE | 2018-08-14 16:43 | NUR ---
CONTINUED 08/14/18 AM Nursing Progress Note: Legal hold: 5250 Client on voluntary/involuntary status for GD/DTS Report received from nurse with use of SBAR: CHARITO Vernon Why are they here: The patient was admitted 08/03 from [facility] ER where he was being held on a 5150 for being a danger to himself and gravely disabled. He was picked up by police after he was running into traffic. When contacted by the police he was making paranoid statements. He has a long hx of mental illness and he has been off medications for the past one and half years. He is homeless. Assessment What happened this shift: Pt largely avoidant of this RN before breakfast then when went to give meds after he ate his tray, reluctantly agreed to take them stating, "you forgot to come remind me before breakfast." When asked pt "How are you?" Pt stated, "Don't ask me any questions, I'm in a bad mood. Can you tell the other nurses not to ask me questions everyday? Every time you ask me 'how are you,' I'm just going to keep asking you, 'how are you?'" Pt observed carrying his plastic hygiene bin around with him full of books and other things. Per nurses' notes, pt has been tearing up washclothes and towels and making strings, also a broken toothbrush was found in his room on the evening of 08/12/18. Notified charge nurse of pt carrying hygiene bin around with him everywhere. Discussed situation with the charge nurse and director. Pt was sitting in the community room, charge nurse, this RN and PCT asked pt to return to room so we could talk to him. Pt reluctant to return to room, wanted to know why. Discussed how hygiene bin could not be carried around with him all day. 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 Pt then returned to room and emptied pockets and hygiene bucket per request. Pt had toothbrush that the end had been broken off of forming jagged edges in his bin, also had strips of torn up washcloth in his pocket. Pt stated the reason why the toothbrush was broken off like that was because he was trying to make shoelaces for his shoes. Offered pt zip ties for shoes, pt declined. Reinforced unit rules with pt that he cannot continue to tear up washcloths or break up pencils or toothbrushes to make sharp edges. Pt was cooperative with going through hygiene bin, expressed understanding of unit rules. PCT searched room afterwards and found more pencils and another broken, jagged edged toothbrush which had been stuffed up/hidden in the paper towel porter in pt's room. Pt became agitated during phone call with mom while sitting in community room around 1245. He became paranoid, loudly stating that staff wants to kill him and if they want him , they should just slip him a gun and let him shoot himself in the head. Reassured pt that he was safe here, that staff was here to help and no one here wished him . Pt heard another pt laugh about something unrelated to him and remarked that she was laughing at him and there are so many people who like to laugh at other people's troubles. Reality orientation provided that pt was not laughing at him, reinforced that staff here wish to help him, and most people do not find cliff in other's suffering. medicated with prn Xanax 1 mg at 1252 with good effect. Pt expressed his wish to watch a movie today either "Bill and Ceasar's Excellent Adventure" or "Stu Juarez, [facility]." S/I, H/I: Pt refused to answer assessment questions today A/VH: Pt declined to answer questions Sleep: per noc shift report, slept 5 hours ADL's: Independent Group attendance: Yes Were meds taken: Yes Any med S/E: None Reported or observed Mental Status Exam Appearance: Clean, dressed in sweat pants, hi-top sneakers Eye contact: Fair Behavior: Avoidant, dismissive,confrontational alternating with apologetic/cooperative, hoarding torn strips of washcloth, broken pencils and toothbrushes, easily agitated Speech: Loud, hyperverbal at times Mood: Labile, irritable Affect: intimidating, demanding, postures at times Thought process: Delusional, Paranoid, demanding Thought Content: Fixates on food, believes others are laughing at him and staff wants to kill him/wants him Cognition: A&Ox4 Insight: Poor Judgment: impaired Interventions PRN's used: Xanax 1 mg at 1252 Therapeutic interventions: Attempted 1:1 assessment, medication administration/eduction/monitoring, reality orientation, verbal de-escalation, limit setting, enforcement of unit rules, distraction, confiscation of contraband, reassurance that pt is safe, Q 15 min checks. Restraints/seclusion/emergency medication: N/A Justification of Continued Inpatient Treatment: The patient's mood is unstable and he continues to misinterpret reality. Pt. is paranoid, delusional, labile and unable to verbalize a plan for self care if he were to leave the hospital. He is impulsive, confrontational and acts out interpersonally on his delusional thoughts putting at risk to harm himself or others.
--- NOTE | 2018-08-14 17:04 | NUR ---
Pt currently pleasant and cooperative, watching "Raiders of the Lost Ark" in the community room. He stated that he has a list of 14 movies he wants to watch before he leaves, he stated that he is going to take whatever meds the doctor orders him and be cooperative until he leaves here. Pt stated, "I hope you nurses are getting my medications right and not giving me any wrong ones." Reassured pt the reason why we scan his wrist and his medications is to make sure we have the right meds for the right pt.
[2018-08-14] MEDS: hydrOXYzine 25 MG tablet PO PRN (19:32)
[2018-08-14] MEDS: hydrOXYzine 25 MG tablet PO SCH (22:00)
[2018-08-14] MEDS: OLANZAPINE 5 MG TABLET PO SCH (22:05)
--- NOTE | 2018-08-14 23:05 | NUR ---
Nursing Progress Note Legal hold: 5250 Client on voluntary/involuntary status for GD/DTS Report received from nurse with use of SBAR: CHARITO Simon Why are they here: The patient was admitted 08/03 from [facility] ER where he was being held on a 5150 for being a danger to himself and gravely disabled. He was picked up by police after he was running into traffic. When contacted by the police he was making paranoid statements. He has a long hx of mental illness and he has been off medications for the past one and half years. He is homeless. Assessment What happened this shift: Pt was sleeping in his room at change of shift, woke up and came out of his room and attempted to hit a wall with his fist when charge nurse told him to stop and he did but became argumentative and began demanding medications, pt was agitated and prn meds were pulled. Pt then refused medications. I asked pt if he felt we needed to call security or if he thought he could calm himself with pacing. Pt chose to pace in the hays and then after some time he decided to take his prns. Pt apologized saying "i just woke up so I was mad, Im gonna try and be cool the rest of the night" Pt requested to watch "back to the future and get assistance w/tv. Charge Nurse assisted pt w finding the show he wanted then he asked this nurse to watch videos with him. Pt refused answering assessment questions and watched tv. He was med compliant for the most part, questioning each medication and states he is afraid of the "lazer" on the med scanner, assured him it is only scanning the barcode. Pt was overheard making a phone call stating "you're gonna if something happens to me here, youre gonna rot in hell" I asked who he is talking to like that? He states "some girl who got my information from the toilets in [place]. I told pt that he could not use the phone if he was talking to people like that, and he states and he pulled out his patients rights handbook and attempted to call the number on the pamphlet before turning the phone in. Pt took prn atarax early in the evening but refused scheduled HS atarax, He took the pills from me then threw them down the hays, saying "I took enough meds tonight." Shortly after 10pm meds pt gathered his paperwork and went to bed. S/I, H/I: Pt refused to answer A/VH: Refused assessment Sleep: pt doesnt answer how he feels he has been sleeping, snoring loudly ADL's: Independent Group attendance: no evening groups Were meds taken: refused hs atarax Any med S/E: None Reported, None Observed Mental Status Exam Appearance: adequately groomed and dressed Eye contact: Direct Behavior: Confrontational, Intimidating, Defensive, hostile Speech: Hyperverbal, Tangential, Mood: Labile Affect: Congruent to mood Thought process: Delusional, Paranoid Thought Content: talking about his mom being a good nurse and states she is hiding guns on her property. Saying his mom got him "stuck in the place and my house is in [place]" Cognition: A&Ox4 Insight: Poor Judgment: Poor Interventions PRN's used: zyprexa, atarax Therapeutic interventions: Attempted 1:1 assessment, active listening, attempted to build rapport w/patient, redirection as needed, Q15 checks Restraints/seclusion/emergency medication: N/A Justification of Continued Inpatient Treatment: The patient's mood is unstable and he continues to misinterpret reality. Pt. is paranoid, delusional, labile and unable to verbalize a plan for self care if he were to leave the hospital. He is impulsive, confrontational and acts out interpersonally on his delusional thoughts putting at risk to harm himself or others.
[2018-08-15] MEDS: lactobacillus rhamnosus 10,000 MMU CELLS/CAPSULE PO SCH ×2 (08:01→20:00)
[2018-08-15] MEDS: ibuprofen tablet 400 MG TABLET PO SCH ×2 (08:01)
[2018-08-15] MEDS: ziprasidone 20mg capsule PO SCH ×2 (08:01→22:10)
[2018-08-15] MEDS: valproate sod 250mg/5ml UD oral syrup PO SCH ×4 (08:01→22:02)
[2018-08-15] MEDS: olanzapine 10mg tablet PO SCH (08:03)
[2018-08-15] MEDS: ALPRAZolam 0.5mg tablet PO PRN ×2 (08:28→19:08)
--- NOTE | 2018-08-15 08:52 | NUR ---
Pt refused VS Addendum: 08/15/18 at 0853 by Elena Bailey RN (Lee) Amended: Links added.
--- NOTE | 2018-08-15 09:00 | NUR ---
Pt drank one 250 mg/5ml Depakene, he coughed, some of it seemed "to go down the wrong tube." Pt then adamantly refused to take the other 250 mg/5ml cup of Depakene stating that it gave him an allergic reaction. No s/sx allergic reaction noted, attempted reality orientation, that it had just gone down the wrong tube, reality orientation ineffective. Pt stated that the Depakene caused him to feel like he couldn't breathe last night, states he is not going to take it anymore.
--- NOTE | 2018-08-15 10:40 | NUR ---
Notified SAMMY Navas of Pt's refusal to take the full dose of his Depakene this morning.
--- NOTE | 2018-08-15 14:43 | NUR ---
Nursing Progress Note: Legal hold: 5250 Client on voluntary/involuntary status for GD/DTS Report received from nurse with use of SBAR: CHARITO Vernon Why are they here: The patient was admitted 08/03 from [facility] ER where he was being held on a 5150 for being a danger to himself and gravely disabled. He was picked up by police after he was running into traffic. When contacted by the police he was making paranoid statements. He has a long hx of mental illness and he has been off medications for the past one and half years. He is homeless. Assessment What happened this shift: Went to give pt his am medications before breakfast per his preference. Pt coughed after taking first Depakene 250 mg/5 ml cup, some of the medication seemed to have gone down the wrong tube. Pt refused to take 2nd cup Depakene to make 500 mg dose stating, "I'm refusing my Depakote until I have water, it's poison and shit," pt had over 1/4 pitcher of water in his hand. Pt then stated he would take his other medications later. Pt approached this RN in the hays a short while later and said that he was having an allergic reaction to Depakene, no s/sx of allergic reaction noted. Pt stated, "plus I wake up feeling like I can't breathe at night...I'll take my other meds." Attempted reality orientation that there was no evidence of an allergic reaction and that the Depakene had just gone down the wrong tube. Pt adamantly refused to take 2nd half of Depakene dose. Pt requested Xanax at 0825 with good effect. Mom called and spoke with pt just before morning group, requested to speak with this nurse with pt's permission. Mom was concerned over pt's fluctuating moods and angry outbursts, asked questions about medications and doses. Mom stated that pt gets agitated when pt talks to dad as dad is Sikh, Dimitry was Sikh, had his [employer] but later decided to become a Yazdanism and was baptized. Mom states that dad is really mad about this and pushes the issue with the pt. Pt refused 1300 Depakene dose stating he choked on it, he will talk with Dr Roper, also states that Depakote has caused him to have elevated liver enzymes in the past. Asked if he would prefer a pill form versus a liquid. Pt reiterated that he would discuss it with Dr Roper, stated "I'm reading my Bible right now if you don't mind." Pt was mostly calm and cooperative today, was polite in refusing his Depakene, socialized with peers, attempted to remedy tension with another male pt; his former roommate here, receptive to having other pt as a roommate again though other pt declined. Pt observed reading his Bible and watching movies. No physical or verbal outbursts so far today. S/I, H/I: Pt declined to participate in mental health assessment questions A/VH: Pt declined to answer questions Sleep: Slept per noc shift report after HS meds ADL's: Independent Group attendance: Yes Were meds taken: Yes Any med S/E: Pt believes that he had an allergic reaction to Depakene, now refusing to take Depakene. Mental Status Exam Appearance: Clean, dressed in hospital scrubs with collared shirt underneath top and hi-top tennis shoes. Eye contact: Good Behavior: mostly cooperative, dismissive at times, reads Bible, watches movies, socializes with peers and select staff members, makes many phone calls Speech: Loud, hyperverbal at times Mood: more stable today though easily irritable Affect: somewhat constricted Thought process: paranoid, reality distortion, sikhism preoccupation Thought Content: Believes he is allergic to Depakene, plans on continuing to take all his other meds except maybe HS Atarax, states he will take Atarax as needed when we feel he needs it, adding movies to his list of movies to watch. Cognition: A&Ox4 Insight: poor Judgment: poor Interventions PRN's used: Xanax 1 mg at 0825 Therapeutic interventions: Attempted 1:1 assessment & establishment of rapport, medication administration/eduction/monitoring, reality orientation, verbal de-escalation, distraction, redirection, limit setting, positive reinforcement, Q 15 min checks. Restraints/seclusion/emergency medication: N/A Justification of Continued Inpatient Treatment: Pt is paranoid, delusional, labile and unable to verbalize a plan for self care if he were to leave the hospital. He is impulsive, confrontational and acts out interpersonally on his delusional thoughts putting at risk to harm himself or others, he continues to need further medication adjustment and monitoring in a safe, therapeutic environment. Addendum: 08/15/18 at 1640 by Elena "Zi" Woodman MCNEILL Pt later agreed to take his 1300 Depakene at 1613, chargemaster specialistCHARITO rivers.
[2018-08-15 20:00] VITALS: BP 155/97
[2018-08-15] MEDS: hydrOXYzine 25 MG tablet PO SCH (22:00)
[2018-08-15] MEDS: OLANZAPINE 5 MG TABLET PO SCH (22:05)
--- NOTE | 2018-08-16 02:54 | NUR ---
Nursing Progress Note: Legal hold: 5250 Client on voluntary/involuntary status for GD/DTS Report received from nurse with use of SBAR: CHARITO Simon Why are they here: The patient was admitted 08/03 from [facility] ER where he was being held on a 5150 for being a danger to himself and gravely disabled. He was picked up by police after he was running into traffic. When contacted by the police he was making paranoid statements. He has a long hx of mental illness and he has been off medications for the past one and half years. He is homeless. Assessment What happened this shift: Pt was sitting in group room at shift change. Pt was expressive in telling this advertising copy writer on when to administer his medications. Pt was pleasant in communication. Pt refused 1;1 assessment, however was compliant with most of his medications. Pt refused his 1999 Lactobacillus and his 2199 Atarax. Pt helped clean up group room after HS snack time. Pt denies SI, A/VH. States I am trying to get along with everyone. Pt has been observed trying to make his roommate comfortable. Pt was upset at first because the divider curtain was open, but then responded with Okay I can make a compromise with curtain, we can keep it closed. Pt was less compulsive and confrontational then the last couple of nights. CRN had to pull patient from room for a short time because he was keeping his roommate awake by talking to himself and doing push-ups. After a short pause, pt returned to his room without incident. S/I, H/I: None reported or observed A/VH: None reported or observed Sleep: See sleep assessment notation ADL's: Independent Group attendance: insurance account representative, no group Were meds taken: Yes, except 2000 Lactobacillus and 2199 Atarax Any med S/E: None reported or observed Mental Status Exam Appearance: Clean, dressed in hospital scrubs with collared shirt underneath top and hi-top tennis shoes. Eye contact: Good Behavior: Mostly cooperative, dismissive at times Speech: Loud, hyperverbal at times Mood: More stable today though easily irritable Affect: Somewhat constricted Thought process: paranoid, reality distortion Thought Content: Trying to get along with roommate Cognition: A&Ox4 Insight: Poor Judgment: Poor Interventions PRN's used: Xanax 1 mg Therapeutic interventions: Attempted 1:1 assessment & establishment of rapport, medication administration/eduction/monitoring, reality orientation, verbal de-escalation, distraction, redirection, limit setting, positive reinforcement, Q 15 min checks. Restraints/seclusion/emergency medication: N/A Justification of Continued Inpatient Treatment: Pt is paranoid, delusional, labile and unable to verbalize a plan for self care if he were to leave the hospital. He is impulsive, confrontational and acts out interpersonally on his delusional thoughts putting at risk to harm himself or others, he continues to need further medication adjustment and monitoring in a safe, therapeutic environment.
[2018-08-16 08:00] VITALS: BP 123/77
[2018-08-16] MEDS: lactobacillus rhamnosus 10,000 MMU CELLS/CAPSULE PO SCH (08:00)
[2018-08-16] MEDS: olanzapine 10mg tablet PO SCH (08:19)
[2018-08-16] MEDS: valproate sod 250mg/5ml UD oral syrup PO SCH ×3 (08:19→22:29)
[2018-08-16] MEDS: ziprasidone 20mg capsule PO SCH ×2 (08:19→22:32)
[2018-08-16] MEDS: ALPRAZolam 0.5mg tablet PO PRN ×2 (08:31→20:44)
--- NOTE | 2018-08-16 16:19 | NUR ---
Nursing Progress Note: Legal hold: 5250 Client on voluntary/involuntary status for GD/DTS Report received from nurse with use of SBAR: CHARITO Vernon Why are they here: The patient was admitted 08/03 from [facility] ER where he was being held on a 5150 for being a danger to himself and gravely disabled. He was picked up by police after he was running into traffic. When contacted by the police he was making paranoid statements. He has a long hx of mental illness and he has been off medications for the past one and half years. He is homeless. Assessment What happened this shift: Pt stated that he needed to review his med list with this RN this am, stated, "I found a med error last night. I'm not on Atarax, I signed a paper." Attempted reality orientation that pt has an order for Atarax at HS and prn. Pt would not acknowledge understanding, saying it is not for when I ask for it but when you guys decide I need it, refused to believe it was ordered routinely at bedtime. Pt refused Culturelle this am , took all other routine meds. Pt asked for Xanax 1 mg at 0831, stated, "it reminds me of a happy time in my childhood." At breakfast pt asked tech if he could take his milk with him to his room. Tech replied, "it depends on the nurse." Educated that it is a unit rule not to have food in pt's rooms. Pt accepted that. Overheard tech asking pt if he had used his toothbrush yet as we needed to recollect his hygiene bin when he was finished. Pt asked, "both toothbrushes?" Pt then asked , "is that only for me or for everyone?" then walked out of room. After breakfast, pt asked for a pen to take to his room and fill out his menu. Explained that the menu needs to be filled out in the community room with the techs. Pt crumpled his menu up in a ball and placed it on top of the meal cart. venture capitalist spoke with pt, reviewed unit rules and reasons for them, pt was calmed and filled out his menu with charge nurse assistance. Observed pt playing card game with a female peer in the community room before lunch. Pt may have been sharing too much information with female peer, he has poor boundaries and impaired social skills. The other pt's nurse reported that the female pt became uncomfortable and anxious during card game and interaction with pt. She wished to avoid further interaction with him today. Other RN told female pt we would pay attention and help out if noticed him approaching her again today. When went to give pt 1300 Depakene, pt looked at my name tag and said, "Zi, like Ebenezer Pinon, I won't forget that." He took the med and then said, "Thank you Ms. "W" while making direct eye contact. Pt became agitated after phone call with a family member, he was able to calm himself with redirection and positive reinforcement from staff. Pt socialized with staff and peers this shift, requested to shave, shaved with staff supervision. Overheard pt discussing his good self and his bad self with PCT, stated that "everyone has a bad side." No unsafe behaviors or physical aggression noted this shift. S/I, H/I: Pt declined to participate in mental health assessment questions A/VH: Pt declined to answer questions Sleep: Slept 4 hours per noc shift report ADL's: Independent Group attendance: Yes Were meds taken: Yes Any med S/E: None noted or reported Mental Status Exam Appearance: Clean, dressed Eye contact: Good Behavior: challenging unit rules, mostly cooperative and redirectable Speech: Loud, hyperverbal at times Mood: improved, slightly elevated, labile, easily frustrated, irritated, escalates rapidly without early intervention Affect: Bright Thought process: grandiose,reality distortion, worship preoccupation Thought Content: tells stories about his run ins with law enforcement and fantasies about him winning fights with weapons or physical prowess, glamorizes confrontations with authorities, gets upset, feelings hurt during phone calls with family and becomes agitated afterwards Cognition: A&Ox4 Insight: poor Judgment: poor Interventions PRN's used: Xanax 1 mg at 0831 Therapeutic interventions: attempted 1:1 assessment & establishment of rapport, medication administration/education/monitoring, reality orientation, verbal de-escalation, distraction, redirection, limit setting, consistent enforcement of unit rules, positive reinforcement, Q 15 min checks. Restraints/seclusion/emergency medication: N/A Justification of Continued Inpatient Treatment: Pt is paranoid, delusional, labile and unable to verbalize a plan for self care if he were to leave the hospital. He is impulsive, confrontational and acts out interpersonally on his delusional thoughts putting at risk to harm himself or others, he continues to need further medication adjustment and monitoring in a safe, therapeutic environment.
[2018-08-16 19:55] VITALS: BP 129/83
[2018-08-16] MEDS: guanFACINE 1 mg tablet PO SCH (20:00)
--- NOTE | 2018-08-16 22:07 | NUR ---
Went through the patients room along with three other staff at the beginning of shift and found a pencil that was broken and jagged stuffed down the side of the patients chair. He also had another pencil that was sharpened on his person that he handed over. About an hour into shift the patient asked "can I take a bird bath and get several towels." he was told that it was not allowed, he went to multiple staff asking if he could. He was told that he could take a shower, he agreed to do this instead. He requested his entire hygiene bucket, specifically asking for his toothbrush. He was denied this requested and told he could have it when he was ready to brush his teeth. He then declined the shower if he could not have his tooth brush. Later in the evening the patient was seen walking to his room with several cups, tea bags, and orange peels. Myself and another staff went to his room. We confiscated the orange peels, cups, and tea bags.
[2018-08-16] MEDS: OLANZAPINE 5 MG TABLET PO SCH (22:30)
[2018-08-16] MEDS: hydrOXYzine 25 MG tablet PO SCH (22:31)
--- NOTE | 2018-08-17 01:12 | NUR ---
Nursing Progress Note: Legal hold: 5250 Client on voluntary/involuntary status for GD/DTS Report received from nurse with use of SBAR: CHARITO Simon Why are they here: The patient was admitted 08/03 from [facility] ER where he was being held on a 5150 for being a danger to himself and gravely disabled. He was picked up by police after he was running into traffic. When contacted by the police he was making paranoid statements. He has a long hx of mental illness and he has been off medications for the past one and half years. He is homeless. Assessment What happened this shift: Pt roomate c/o water all over floor in bathroom. Pt said he was washing clothes in sink. Encouraged to let staff do laundry. Pt became angry. Pt argumentative about medications as soon as shift started. Pt has a paper signed by Dr. Roper saying he will take his meds at 22:00. Reassured Pt that he could take his meds when he wanted. All HS meds taken to pt at 22:00. Pt wanted snack with meds provided snack in group room. Pt became more and more agitated. Accused staff of treating him unfairly. Pt conversation continued to escalate without any provocation from staff. Refused Atarax took rest of medications. Went to room. Pt's roommate became frightened of pt and allowed to sleep in observation room. Pt went to sleep and is sleeping at this time. S/I, H/I: Pt declined to participate in mental health assessment questions A/VH: Pt declined to answer questions Sleep: Slept 4 hours per noc shift report ADL's: Independent Group attendance: Yes Were meds taken: Yes Any med S/E: None noted or reported Mental Status Exam Appearance: Clean, dressed Eye contact: Good Behavior: challenging unit rules, mostly cooperative and redirectable Speech: Loud, hyperverbal at times Mood: improved, slightly elevated, labile, easily frustrated, irritated, escalates rapidly without early intervention Affect: Bright Thought process: grandiose,reality distortion, bahai preoccupation Thought Content: tells stories about his run ins with law enforcement and fantasies about him winning fights with weapons or physical prowess, glamorizes confrontations with authorities, gets upset, feelings hurt during phone calls with family and becomes agitated afterwards Cognition: A&Ox4 Insight: poor Judgment: poor Interventions PRN's used: Xanax 1 mg at 0831 Therapeutic interventions: attempted 1:1 assessment & establishment of rapport, medication administration/education/monitoring, reality orientation, verbal de-escalation, distraction, redirection, limit setting, consistent enforcement of unit rules, positive reinforcement, Q 15 min checks. Restraints/seclusion/emergency medication: N/A Justification of Continued Inpatient Treatment: Pt is paranoid, delusional, labile and unable to verbalize a plan for self care if he were to leave the hospital. He is impulsive, confrontational and acts out interpersonally on his delusional thoughts putting at risk to harm himself or others, he continues to need further medication adjustment and monitoring in a safe, therapeutic environment.
[2018-08-17] MEDS: guanFACINE 1 mg tablet PO SCH ×2 (08:00→20:00)
[2018-08-17] MEDS: valproate sod 250mg/5ml UD oral syrup PO SCH ×2 (08:37→13:00)
[2018-08-17] MEDS: ALPRAZolam 0.5mg tablet PO PRN (08:38)
[2018-08-17] MEDS: ziprasidone 20mg capsule PO SCH ×2 (08:41→22:52)
[2018-08-17] MEDS: olanzapine 10mg tablet PO SCH (08:45)
--- NOTE | 2018-08-17 11:49 | NUR ---
Reassessment: Good appetite, eating well, average intake 75-100% PO regular diet meeting needs with no nutrition problem at this time. Will continue to follow. Rec: 1. continue regular diet 2. routine bowel care if no BM more than 2 days 3. wt per rx Addendum: 08/17/18 at [address] Amended: Links added.
--- NOTE | 2018-08-17 18:11 | NUR ---
Nursing Progress Note Legal hold: 5250 Client on voluntary/involuntary status for GD/DTS Report received from nurse with use of SBAR by CHARITO Swain Why are they here: The patient was admitted 08/03 from [facility] ER where he was being held on a 5150 for being a danger to himself and gravely disabled. He was picked up by police after he was running into traffic. When contacted by the police he was making paranoid statements. He has a long hx of mental illness and he has been off medications for the past one and half years. He is homeless. Assessment: What happened this shift: Received patient awake in room at change of shift. Walked the hays before breakfast with books and papers in his hand and asked for xanax, Pt given xanax prn with AM meds. He became intimidating and aggressive with this RN during AM meds and wanted space. Pt refused tenex and 1300 depokene. Remains paranoid and controlling around meds, needing to see them come out of the package or take them out himself. Sat in group room by self in AM at times , secondary to other clients not wanting to be around him. Did not want to go to groups and demanded to talk to Dr Carolina most of AM and early afternoon. He isolated to room often in afternoon. Pt unable to have a conversation without intimidating attempts at control. S/I, H/I: Denies A/VH: Denies Sleep: Napped ADL's: independent Group attendance: Yes Were meds taken: Yes Any med S/E none apparent Mental Status Exam Appearance: Dressed appropriately for the unit Eye contact: fair Behavior: Intrusive, intimidating; disorganized, impulsive, labile Speech: pressured Mood: Labile Affect: Labile Thought process: Delusional and paranoid. Disorganized Thought Content: Self absorbed/ His needs Cognition: Alert Insight: very poor Judgment:Poor Interventions PRN's used: Xanax x1 Therapeutic interventions: One to one with the patient to assess for severity of thought disorder and his ability to verbalize a realistic plan for self care. Therapeutic conversation; Maintain therapeutic milieu; Provide structure and redirection as needed. Self harm risk assessed Restraints/seclusion/emergency medication: NA Justification of Continued Inpatient Treatment: The patient's mood is unstable and he continues to misinterpret reality. He is unable to verbalize a plan for self care if he were to leave the hospital. He is impulsive and acts out on his delusional thoughts putting at risk to harm himself or others
[2018-08-17 20:00] VITALS: BP 142/77
[2018-08-17] MEDS: OLANZAPINE 5 MG TABLET PO SCH (22:50)
[2018-08-17] MEDS: divalproex sodium 500mg tablet.DR PO SCH (22:52)
[2018-08-17] MEDS: hydrOXYzine 25 MG tablet PO SCH (22:53)
--- NOTE | 2018-08-18 02:30 | NUR ---
Nursing Progress Note: Legal hold: 5250 Client on voluntary/involuntary status for GD/DTS Report received from nurse with use of SBAR: CHARITO Simon Why are they here: The patient was admitted 08/03 from [facility] ER where he was being held on a 5150 for being a danger to himself and gravely disabled. He was picked up by police after he was running into traffic. When contacted by the police he was making paranoid statements. He has a long hx of mental illness and he has been off medications for the past one and half years. He is homeless. Assessment What happened this shift: Pt pleasant and cooperative. Pt mood is much less labile this shift. Pt is looking forward to discharge. Pt requested his meds at 23:00 and took them at that time without any c/o. Pt looking forward to discharge. Pt discharge plan was vague and he did not choose to share any details. Pt needs valproic acid lab. After much discussion pt agreed to allow his lab to be drawn at 07:30 in am. Will pass this plan for lab onto day shift with the hope he will remain cooperative. Stayed up in rec room till after midnight convinced to go to room. Went to sleep fairly quickly, asleep at this time. Pt went to sleep and is sleeping at this time. S/I, H/I: Pt declined to participate in mental health assessment questions A/VH: Pt declined to answer questions Sleep: Slept 4 hours per noc shift report ADL's: Independent Group attendance: Yes Were meds taken: Yes Any med S/E: None noted or reported Mental Status Exam Appearance: Clean, dressed Eye contact: Good Behavior: mostly cooperative and pleasant Speech: Loud, hyperverbal at times Mood: improved, slightly elevated, labile, easily frustrated, irritated, escalates rapidly without early intervention Affect: Bright Thought process: grandiose,reality distortion, restoration preoccupation Thought Content: tells stories about his run ins with law enforcement and fantasies about him winning fights with weapons or physical prowess, glamorizes confrontations with authorities, gets upset, feelings hurt during phone calls with family and becomes agitated afterwards Cognition: A&Ox4 Insight: poor Judgment: poor Interventions PRN's used: Xanax 1 mg at 0831 Therapeutic interventions: attempted 1:1 assessment & establishment of rapport, medication administration/education/monitoring, reality orientation, verbal de-escalation, distraction, redirection, limit setting, consistent enforcement of unit rules, positive reinforcement, Q 15 min checks. Restraints/seclusion/emergency medication: N/A Justification of Continued Inpatient Treatment: Pt is paranoid, delusional, labile and unable to verbalize a plan for self care if he were to leave the hospital. He is impulsive, confrontational and acts out interpersonally on his delusional thoughts putting at risk to harm himself or others, he continues to need further medication adjustment and monitoring in a safe, therapeutic environment.
[2018-08-18 08:00] VITALS: BP 142/77
[2018-08-18] MEDS: guanFACINE 1 mg tablet PO SCH ×3 (08:00→20:00)
[2018-08-18] MEDS: divalproex sodium 500mg tablet.DR PO SCH ×2 (08:37→22:25)
[2018-08-18] MEDS: ziprasidone 20mg capsule PO SCH ×2 (08:38→22:21)
[2018-08-18] MEDS: ALPRAZolam 0.5mg tablet PO PRN ×2 (08:45→20:31)
--- NOTE | 2018-08-18 11:45 | NUR ---
1:1 DISCHARGE PLANNING SW contacted pt's mother regarding pt upcoming discharge. Pt mother agreeable, however continuing to request snf placement and board and care. SW explained pt's right to self determination and the importance of allowing a pt to choose what/how they would like their recovery to occur/look like. Pt's mother agreeable. Pt's mother requested pt be kept through 07/22/2018. SW explained legalities and criteria for holding a person in a locked facility. Pt's mother agreeable to discharge once again. GRECIA Gomez
--- NOTE | 2018-08-18 16:10 | NUR ---
Nursing Progress Note Legal hold: 5250 Client on voluntary/involuntary status for GD/DTS Report received from nurse with use of SBAR by CHARITO Simon Why are they here: The patient was admitted 08/03 from [facility] ER where he was being held on a 5150 for being a danger to himself and gravely disabled. He was picked up by police after he was running into traffic. When contacted by the police he was making paranoid statements. He has a long hx of mental illness and he has been off medications for the past one and half years. He is homeless. Assessment: What happened this shift: Patient was asleep at change of shift and up soon after. Patient is in a good mood talking to RN about music. Patient has not had any agitation today. Patient denies S/I, H/I and AVH. Patient states he gets depressed and anxious about his relationship with his mom. S/I, H/I: Denies A/VH: Denies Sleep: good ADL's: independent Group attendance: Yes Were meds taken: Yes Any med S/E none apparent Mental Status Exam Appearance: Dressed appropriately for the unit Eye contact: fair Behavior: friendly, talkative Speech: normal Mood: Happy Affect: Pleasant Thought process: Disorganized Thought Content: Talking about his relationship with his mother Cognition: Alert Insight: poor Judgment:Poor Interventions PRN's used: Xanax x1 Therapeutic interventions: One to one with the patient to assess for severity of thought disorder and his ability to verbalize a realistic plan for self care. Therapeutic conversation; Maintain therapeutic milieu; Provide structure and redirection as needed. Self harm risk assessed Restraints/seclusion/emergency medication: NA Justification of Continued Inpatient Treatment: The patient's mood is unstable and he continues to misinterpret reality. He is unable to verbalize a plan for self care if he were to leave the hospital. He is impulsive and acts out on his delusional thoughts putting at risk to harm himself or others
[2018-08-18 19:55] VITALS: BP 125/90
[2018-08-18] MEDS: hydrOXYzine 25 MG tablet PO SCH (22:00)
[2018-08-18] MEDS: OLANZAPINE 5 MG TABLET PO SCH (22:23)
--- NOTE | 2018-08-18 23:31 | NUR ---
Nursing Progress Note: Legal hold: 5250 Client on voluntary/involuntary status for GD/DTS Report received from nurse with use of SBAR: CHARITO Simon Why are they here: The patient was admitted 08/03 from [facility] ER where he was being held on a 5150 for being a danger to himself and gravely disabled. He was picked up by police after he was running into traffic. When contacted by the police he was making paranoid statements. He has a long hx of mental illness and he has been off medications for the past one and half years. He is homeless. Assessment What happened this shift: Met with patient in his room for a 1:1. He is pleasant and cooperative. Looking forward to discharge tomorrow. States, "I'm doing better. I'M going to stay away from marijuana and take my meds." He is planning to go to a motel and also try and find a job. He is med compliant and takes his HS meds at 19pm. Pt went to sleep and is sleeping at this time. S/I, H/I: Denies HI/SI A/VH: Denies A/VH Sleep: Sleeping at this time. ADL's: Independent Group attendance: Group room for snack Were meds taken: Yes Any med S/E: None noted or reported Mental Status Exam Appearance: Clean, dressed Eye contact: Good Behavior: cooperative and pleasant Speech: Normal Mood: Pleasant and cooperative Affect: Bright Thought process: grandiose Thought Content: Looking forward to tomorrow's discharge. Cognition: A&Ox4 Insight: poor Judgment: poor Interventions PRN's used: Xanax 1 mg Therapeutic interventions: 1:1 assessment & establishment of rapport, medication administration/education/monitoring, positive reinforcement, Q 15 min checks. Restraints/seclusion/emergency medication: N/A Justification of Continued Inpatient Treatment: Per Dr Roper, patient will be discharged tomorrow.
[2018-08-19] MEDS: divalproex sodium 500mg tablet.DR PO SCH (07:19)
[2018-08-19] MEDS: ziprasidone 20mg capsule PO SCH (07:19)
[2018-08-19] MEDS: guanFACINE 1 mg tablet PO SCH (07:21)
[2018-08-19 07:59] VITALS: BP 123/89
[2018-08-19] MEDS ORDERED: OLAN15TA17 PO ×2 (10:06→12:14)
[2018-08-19] MEDS ORDERED: DIVA500T9 PO ×2 (10:06→12:14)
[2018-08-19] MEDS ORDERED: ALPR1TAB7 PO (10:06)
[2018-08-19] MEDS ORDERED: ZIPR80CA10 PO ×2 (10:06→12:14)
--- NOTE | 2018-08-19 12:58 | NUR ---
Pt. discharged to [facility]. Pt. ambulated off unit with all belongings and valuables. Pt. to worm picker medications at [facility], scripts called in by Dr. Roper. Pt. has f/u appointments in place. Pt. denies SI/HI, A/V H.
--- NOTE | 2018-08-19 13:21 | NUR ---
Pt. refused pictures of the wounds on his feet and was very resistive to assessments of his feet becoming quickly frustrated and refusing. Assessment of right foot showed healing but peeling skin. Calluses on great toe and heel. Addendum: 08/19/18 at 1323 by Aleks Mendoza RN Amended: Links added.
== END 2018-08-19 13:10 | disposition home or self-care (01) | DRG 885 ==
LOC: ADULT MH 16:18
PROVIDERS: ADMIT Psychiatry & Neurology Psychiatry; ATTEND Psychiatry & Neurology Psychiatry
DX: F25.0 Schizoaffective disorder, bipolar type (principal); E11.9 Type 2 diabetes mellitus without complications; F17.210 Nicotine dependence, cigarettes, uncomplicated; S90.822A Blister (nonthermal), left foot, initial encounter; S90.821A Blister (nonthermal), right foot, initial encounter; F12.10 Cannabis abuse, uncomplicated; X58.XXXA Exposure to other specified factors, initial encounter; Z59.0 Homelessness; Z88.8 Allergy status to other drugs, medicaments and biological substances; Z72.89 Other problems related to lifestyle; Y93.89 Activity, other specified; Y92.89 Other specified places as the place of occurrence of the external cause; Y99.8 Other external cause status
CPT/HCPCS: 36415; 80061; 80164; 83036; 87070; J3490; Q0177

== ENCOUNTER 2021-08-13 17:39 | Emergency (ER) | payer MEDICARE, MEDICAID ==
[~2021-08-13] VITALS: Ht 183.5 cm; Wt 120.7 kg
[~2021-08-13 17:39] MED LIST changes: +ALPR1TAB7 PO; +DIVA500T9 PO; +OLAN15TA35 PO; +ZIPR80CA10 PO
[2021-08-13 18:21] VITALS: BP 128/83
[2021-08-13] MEDS ORDERED: HYDROcodone/acetaminophen 5mg/325mg tablet PO ONE (19:55)
== END 2021-08-13 20:18 | disposition home or self-care (01) ==
LOC: ER 17:40
DX: S93.401D Sprain of unspecified ligament of right ankle, subsequent encounter (principal); M25.571 Pain in right ankle and joints of right foot; M25.471 Effusion, right ankle; E03.9 Hypothyroidism, unspecified; F31.9 Bipolar disorder, unspecified; F12.90 Cannabis use, unspecified, uncomplicated; Z72.89 Other problems related to lifestyle; Z56.0 Unemployment, unspecified; Z59.00 Homelessness unspecified; Z88.8 Allergy status to other drugs, medicaments and biological substances; Z79.899 Other long term (current) drug therapy; X58.XXXD Exposure to other specified factors, subsequent encounter
CPT/HCPCS: 99283